=== PATIENT | female | born 1955 | race Two or more races ===

== ENCOUNTER → 2022-02-13 | Outpatient (CLI) | payer MEDICARE ==
[2022-02-13 10:23] LABS: Basophils # (auto) 0.1 10 ^3/uL (0-0.2); Eosinophils # (auto) 0.1 10 ^3/uL (0-0.8); Nucleated Red Blood Cells % 0.1 %; Red Cell Distribution Width 16.6 % (11.8-14.3)
[2022-02-13 10:26] LABS: Basophils % (auto) 1.2 % (0.0-2.0); Eosinophils % (auto) 1.7 % (0.0-7.0); Hematocrit 45.7 % (36.0-46.0); Hemoglobin 15.1 g/dL (12.2-16.2); Lymphocytes # (auto) 2.2 10 ^3/uL (0.4-5.4); Lymphocytes % (auto) 45.9 % (10.0-50.0); Mean Corpuscular Hemoglobin 25.9 pg (28.0-32.0); Mean Corpuscular Volume 78.5 fL (80.0-100.0); Monocytes # (auto) 0.4 10 ^3/uL (0-1.3); Monocytes % (auto) 9.2 % (0.0-12.0); Red Blood Cells 5.82 10^6/uL (4.0-5.20); White Blood Cell 4.8 10^3/uL (4.4-10.8)
[2022-02-13 11:22] LABS: Potassium 4.2 mmol/L (3.5-5.1)
[2022-02-13 11:32] LABS: Albumin 3.2 g/dL (3.4-5.0); BUN/Creatinine Ratio 17.2; Bilirubin, Total 0.5 mg/dL (0.2-1.0); Calcium 9.4 mg/dL (8.5-10.1); Total Protein 7.6 g/dL (6.4-8.2)
== END | disposition home or self-care (01) ==
LOC: LAB 09:25
PROVIDERS: ATTEND Student in an Organized Health Care Education/Training Program
DX: E78.5 Hyperlipidemia, unspecified (principal); I10 Essential (primary) hypertension; R73.09 Other abnormal glucose
CPT/HCPCS: 36415; 80053; 80061; 83036; 85025

== ENCOUNTER → 2023-01-15 | Outpatient (CLI) | payer MEDICARE ==
[2023-01-15 09:05] LABS: Eosinophils # (auto) 0.1 10 ^3/uL (0-0.8); Nucleated Red Blood Cells % 0.1 %
[2023-01-15 09:06] LABS: Basophils # (auto) 0.1 10 ^3/uL (0-0.2); Basophils % (auto) 0.9 % (0.0-2.0); Eosinophils % (auto) 1.2 % (0.0-7.0); Hematocrit 45.5 % (36.0-46.0); Hemoglobin 14.9 g/dL (12.2-16.2); Lymphocytes % (auto) 35.4 % (10.0-50.0); Mean Corpuscular Hemoglobin 25.8 pg (28.0-32.0); Mean Corpuscular Hgb Conc. 32.8 g/dL (32.0-36.0); Mean Corpuscular Volume 78.8 fL (80.0-100.0); Monocytes # (auto) 0.5 10 ^3/uL (0-1.3); Monocytes % (auto) 9.1 % (0.0-12.0); Neutrophils % (auto) 53.4 % (37.0-80.0); Red Blood Cells 5.78 10^6/uL (4.0-5.20); Red Cell Distribution Width 16.9 % (11.8-14.3); White Blood Cell 5.7 10^3/uL (4.4-10.8)
[2023-01-15 10:04] LABS: Albumin 3.1 g/dL (3.4-5.0); Calcium 9.5 mg/dL (8.5-10.1); Potassium 3.6 mmol/L (3.5-5.1)
[2023-01-15 10:10] LABS: BUN/Creatinine Ratio 16.2; Bilirubin, Total 0.7 mg/dL (0.2-1.0); Total Protein 7.7 g/dL (6.4-8.2)
== END | disposition home or self-care (01) ==
LOC: LAB 08:48
PROVIDERS: ATTEND Student in an Organized Health Care Education/Training Program
DX: Z12.11 Encounter for screening for malignant neoplasm of colon (principal); E78.2 Mixed hyperlipidemia; R73.03 Prediabetes; I10 Essential (primary) hypertension; Z68.37 Body mass index [BMI] 37.0-37.9, adult; Z85.118 Personal history of other malignant neoplasm of bronchus and lung
CPT/HCPCS: 36415; 80053; 80061; 82274; 83036; 85025

== ENCOUNTER → 2023-07-08 | Outpatient (CLI) | payer OTHER | END | disposition home or self-care (01) | LOC: XYW 10:39 | PROVIDERS: ATTEND Student in an Organized Health Care Education/Training Program | DX: I08.2 Rheumatic disorders of both aortic and tricuspid valves (principal); R01.1 Cardiac murmur, unspecified | CPT/HCPCS: 93306 ==

== ENCOUNTER 2023-08-27 06:06 | Inpatient (IN) | payer MEDICARE, OTHER ==
[2023-08-23 11:20] LABS: Basophils # (auto) 0 10 ^3/uL (0-0.2); Eosinophils # (auto) 0.1 10 ^3/uL (0-0.8); Lymphocytes # (auto) 1.7 10 ^3/uL (0.4-5.4); Monocytes # (auto) 0.5 10 ^3/uL (0-1.3); Monocytes % (auto) 10.6 % (0.0-12.0); Neutrophils # (auto) 2.3 10 ^3/uL (1.6-8.6); Nucleated Red Blood Cells % 0.1 %; White Blood Cell 4.6 10^3/uL (4.4-10.8)
[2023-08-23 11:23] LABS: Basophils % (auto) 0.7 % (0.0-2.0); Eosinophils % (auto) 1.1 % (0.0-7.0); Hematocrit 47.8 % (36.0-46.0); Hemoglobin 15.8 g/dL (12.2-16.2); Lymphocytes % (auto) 37.5 % (10.0-50.0); Mean Corpuscular Hgb Conc. 33.1 g/dL (32.0-36.0); Mean Corpuscular Volume 78.6 fL (80.0-100.0); Neutrophils % (auto) 50.1 % (37.0-80.0); Red Blood Cells 6.08 10^6/uL (4.0-5.20); Red Cell Distribution Width 16.6 % (11.8-14.3)
[2023-08-23 11:40] LABS: Partial Thromboplastin Time 34.9 SEC (24.5-34.5); Prothrombin Time 10.5 sec (9.3-11.8)
[2023-08-23 11:55] LABS: Alanine Aminotransferase 24 U/L (7-40); Albumin 4.5 g/dL (3.2-4.8); Alkaline Phosphatase 83 U/L (46-116); Aspartate Aminotransferase 17 U/L (13-40); BUN/Creatinine Ratio 13.4 (10.0-20.0); Blood Urea Nitrogen 11 mg/dL (9-23); Calcium 9.9 mg/dL (8.5-10.1); Carbon Dioxide 28 mmol/L (20-30); Glucose 109 mg/dL (74-106)
[2023-08-23 11:56] LABS: Bilirubin, Total 0.8 mg/dL (0.2-1.0)
[2023-08-23 12:25] LABS: Anion Gap 7 (5-15); Chloride 103 mmol/L (98-107); Potassium 3.8 mmol/L (3.5-5.1); Sodium 138 mmol/L (136-145)
[2023-08-23 12:29] LABS: Urine Bacteria FEW /hpf (None Seen); Urine Blood Negative /uL (Negative); Urine Clarity HAZY (Clear); Urine Color Yellow (Yellow); Urine Hyaline Cast FEW /lpf (0 - 2); Urine Mucus FEW (None Seen); Urine Protein, UAD Negative (Negative); Urine Specific Gravity 1.013 (1.001-1.035); Urine Urobilinogen Normal (Negative); Urine WBC 9 /hpf (0 - 5)
[2023-08-27] VITALS (15 sets, daily range): BP systolic 100–141; BP diastolic 34–71; PULSE 55–71; RESP 11–18; TEMP 98–98.7; O2SAT 87–97
[~2023-08-27] VITALS: Ht 167.6 cm; Wt 124.0 kg
[~2023-08-27 06:06] MED LIST: AMLO1TAB23 PO; ATO40T PO; LISI-285 PO
[2023-08-27] MEDS ORDERED: ceFAZolin 1GM/50ML 100 ML IV ONE (06:33)
[2023-08-27] MEDS ORDERED: BUPIVACAINE 0.25% INJ 50ML VIAL ONE (06:47)
[2023-08-27] MEDS ORDERED: EPINEPHrine HCL 1 MG/1 ML AMP ONE (06:47)
[2023-08-27] MEDS ORDERED: TRANEXAMIC ACID 20 ML ONE (06:47)
[2023-08-27] MEDS ORDERED: KETOROLAC TROMETH 30 MG/ML 1ML VIAL ONE ×2 (06:49→07:23)
[2023-08-27] MEDS ORDERED: MORPHINE SULF PF 5 MG/10 ML VIAL ONE (06:49)
[2023-08-27] MEDS ORDERED: BUPIVACAINE 0.5% P/F INJ 10 ML VIAL ONE (06:53)
[2023-08-27] MEDS ORDERED: VANCOMYCIN HCL 1000 MG VL ONE (06:56)
[2023-08-27] MEDS ORDERED: fentaNYL CITRATE 100 MCG/2 ML VL ONE (07:22)
[2023-08-27] MEDS ORDERED: GLYCOPYRROLATE 0.2 MG/ML 1ML VIAL ONE (07:23)
[2023-08-27] MEDS ORDERED: MIDAZOLAM HCL 2MG/2ML 2ml VIAL (1mg/ml) ONE ×2 (07:23→08:35)
[2023-08-27] MEDS ORDERED: ePHEDrine SULFATE 50 MG/ML AMP ONE (07:23)
[2023-08-27] MEDS ORDERED: PHENYLEPHRINE HCL 10 MG/ML VL ONE (07:23)
[2023-08-27] MEDS ORDERED: ONDANSETRON HCL 4 MG/2 ML VIAL ONE (07:23)
[2023-08-27] MEDS ORDERED: PROPOFOL 10 MG/ML 20 ML IV ONE (07:23)
[2023-08-27] MEDS ORDERED: ROCURONIUM 10MG/ML 10ML VIAL IV ONE (08:34)
[2023-08-27] MEDS ORDERED: HYDROmorphone HCL 2 MG/ML VL/or syr ONE (08:52)
[2023-08-27] MEDS ORDERED: SUGAMMADEX 200mg/2ml Vial (100MG/ML) IV ONE (09:46)
[2023-08-27] MEDS ORDERED: DexAMETHasone SOD PHOS 10MG/1ML VIAL INJ IV PRN (10:45)
[2023-08-27] MEDS ORDERED: ONDANSETRON HCL 4 MG/2 ML VIAL IV PRN (10:45)
[2023-08-27] MEDS ORDERED: diphenhdrAMINE HCL 50 MG/1 ML VL IV PRN (10:45)
[2023-08-27] MEDS ORDERED: KETOROLAC TROMETH 30 MG/ML 1ML VIAL IV PRN (10:45)
[2023-08-27] MEDS ORDERED: NALOXONE HCL 0.4 MG/ML VIAL IV PRN ×2 (10:45)
[2023-08-27] MEDS ORDERED: oxyCODONE HCL 5MG TAB PO PRN (11:30)
[2023-08-27] MEDS: ONDANSETRON HCL 4 MG/2 ML VIAL IV PRN ×2 (11:32→21:00)
[2023-08-27] MEDS: KETOROLAC TROMETH 30 MG/ML 1ML VIAL IV SCH ×2 (12:00→18:00)
[2023-08-27] MEDS: ACETAMINOPHEN 325 MG TAB PO SCH ×2 (12:00→18:00)
[2023-08-27] MEDS ORDERED: ceFAZolin 2 GM/D5W100ml 100 ML IV SCH (14:00)
[2023-08-27] MEDS ORDERED: DexAMETHasone SOD PHOS 10MG/1ML VIAL INJ IV ONE (15:42)
[2023-08-27] MEDS ORDERED: KETAMINE 50mg/ML 10ml Vial (500mg/10ml) IV ONE (15:42)
[2023-08-27] MEDS: SODIUM CHLORIDE 0.9% 1,000 ML IV SCH (16:00)
[2023-08-27] MEDS: ceFAZolin 2 GM/D5W100ml 100 ML IV SCH (16:46)
[2023-08-28] VITALS (18 sets, daily range): BP systolic 111–151; BP diastolic 38–75; PULSE 67–90; RESP 16–18; TEMP 97.4–98.7; O2SAT 90–98
[2023-08-28] MEDS: ceFAZolin 2 GM/D5W100ml 100 ML IV SCH (00:44)
[2023-08-28] MEDS: ATORVASTATIN 20 MG TAB PO SCH ×2 (00:48→21:50)
[2023-08-28] MEDS: PREGABALIN 25 MG CAP PO SCH ×3 (00:48→21:50)
[2023-08-28] MEDS: SODIUM CHLORIDE 0.9% 1,000 ML IV SCH ×3 (03:45→19:30)
[2023-08-28] MEDS: KETOROLAC TROMETH 30 MG/ML 1ML VIAL IV SCH ×4 (06:00→16:40)
[2023-08-28] MEDS: ACETAMINOPHEN 325 MG TAB PO SCH ×4 (06:00→16:40)
[2023-08-28 06:13] LABS: Anion Gap 5 (5-15); Carbon Dioxide 30 mmol/L (20-30); Chloride 102 mmol/L (98-107); Potassium 4.2 mmol/L (3.5-5.1); Sodium 137 mmol/L (136-145)
[2023-08-28 06:14] LABS: Calcium 9.3 mg/dL (8.7-10.4)
[2023-08-28 06:19] LABS: BUN/Creatinine Ratio 13.1 (10.0-20.0); Blood Urea Nitrogen 13 mg/dL (9-23); Glucose 150 mg/dL (74-106)
[2023-08-28 06:29] LABS: Basophils # (auto) 0 10 ^3/uL (0-0.2); Eosinophils # (auto) 0 10 ^3/uL (0-0.8); Hemoglobin 12.7 g/dL (12.2-16.2); Lymphocytes # (auto) 0.9 10 ^3/uL (0.4-5.4); Lymphocytes % (auto) 6.2 % (10.0-50.0); Mean Corpuscular Hemoglobin 25.9 pg (28.0-32.0); Mean Corpuscular Hgb Conc. 32.7 g/dL (32.0-36.0); Mean Corpuscular Volume 79.2 fL (80.0-100.0); Monocytes # (auto) 1.1 10 ^3/uL (0-1.3); Monocytes % (auto) 6.9 % (0.0-12.0); Neutrophils # (auto) 13.3 10 ^3/uL (1.6-8.6); Neutrophils % (auto) 86.9 % (37.0-80.0); Red Blood Cells 4.93 10^6/uL (4.0-5.20); Red Cell Distribution Width 16.8 % (11.8-14.3); White Blood Cell 15.3 10^3/uL (4.4-10.8)
[2023-08-28] MEDS: APIXABAN 2.5 MG TAB PO SCH ×2 (09:44→21:50)
[2023-08-28] MEDS: oxyCODONE HCL 5MG TAB PO PRN ×3 (09:44→21:50)
[2023-08-28] MEDS: amLODIPine BESYLATE 5 MG TAB PO SCH (09:44)
[2023-08-28] MEDS ORDERED: PATIENTS OWN MEDICATION (Amlodipine Besylate 10 MG) PO SCH (10:00)
[2023-08-28] MEDS ORDERED: PATIENTS OWN MEDICATION (Atorvastatin Calcium (Lipitor) 40 MG) PO SCH (10:00)
[2023-08-28] MEDS ORDERED: HYDROCHLOROTHIAZI PO SCH (10:00)
[2023-08-28] MEDS ORDERED: LISINOPRIL PO SCH (10:00)
[2023-08-29] MEDS: SODIUM CHLORIDE 0.9% 1,000 ML IV SCH ×2 (03:30→11:30)
[2023-08-29 04:55] VITALS: BP 160/69; PULSE 83; RESP 20; TEMP 98; O2SAT 96
[2023-08-29] MEDS: KETOROLAC TROMETH 30 MG/ML 1ML VIAL IV SCH ×3 (06:00→15:33)
[2023-08-29] MEDS: ACETAMINOPHEN 325 MG TAB PO SCH ×3 (06:00→12:00)
[2023-08-29 08:00] VITALS: PULSE 70; PULSE 73; RESP 18; O2SAT 94
[2023-08-29] MEDS: oxyCODONE HCL 5MG TAB PO PRN (08:23)
[2023-08-29] MEDS: APIXABAN 2.5 MG TAB PO SCH (08:23)
[2023-08-29] MEDS: PREGABALIN 25 MG CAP PO SCH (08:23)
[2023-08-29] MEDS: amLODIPine BESYLATE 5 MG TAB PO SCH (08:24)
[2023-08-29 09:00] VITALS: BP 151/63; PULSE 86; RESP 18; TEMP 98.3; O2SAT 98
[2023-08-29 13:00] VITALS: BP 140/51; PULSE 87; RESP 19; TEMP 97.9; O2SAT 91
== END 2023-08-29 16:57 | disposition home health service (06) | DRG 470 ==
LOC: SUR 06:06 → TELE 10:32 → TELE-CENTR 13:20
PROVIDERS: ADMIT Orthopaedic Surgery; ATTEND Orthopaedic Surgery
PROC: 0SRB06Z Replacement of Left Hip Joint with Oxidized Zirconium on Polyethylene Synthetic Substitute, Open Approach (ICD-10-PCS; principal; 2023-08-27 07:39)
DX: M16.12 Unilateral primary osteoarthritis, left hip (principal)
CPT/HCPCS: 36415; 72170; 73502; 80048; 80053; 81001; 85025; 85610; 85730; 86850; 86900; 86901; 97110; 97116; 97163; 97530; C1776; G0378; J0171; J0690; J1100; J1885; J2250; J2405; J2704; J3490

== ENCOUNTER → 2024-04-06 | Outpatient (CLI) | payer MEDICARE ==
[~2024-04-06] MED LIST changes: -ATO40T PO; +ATOR-507 PO
== END | disposition home or self-care (01) ==
LOC: LAB 09:21
PROVIDERS: ATTEND Student in an Organized Health Care Education/Training Program
DX: Z01.812 Encounter for preprocedural laboratory examination (principal); Z85.118 Personal history of other malignant neoplasm of bronchus and lung
CPT/HCPCS: 36415; 82565; 84520

== ENCOUNTER → 2024-04-28 | Outpatient (CLI) | payer OTHER ==
[2024-04-28 12:00] LABS: Basophils # (auto) 0 10 ^3/uL (0-0.2); Basophils % (auto) 0.7 % (0.0-2.0); Eosinophils # (auto) 0.2 10 ^3/uL (0-0.8); Eosinophils % (auto) 3.1 % (0.0-7.0); Hematocrit 46.3 % (36.0-46.0); Hemoglobin 14.9 g/dL (12.2-16.2); Lymphocytes # (auto) 1.9 10 ^3/uL (0.4-5.4); Lymphocytes % (auto) 36.8 % (10.0-50.0); Mean Corpuscular Hemoglobin 25.1 pg (28.0-32.0); Mean Corpuscular Hgb Conc. 32.1 g/dL (32.0-36.0); Mean Corpuscular Volume 78.2 fL (80.0-100.0); Monocytes # (auto) 0.6 10 ^3/uL (0-1.3); Monocytes % (auto) 10.9 % (0.0-12.0); Neutrophils # (auto) 2.5 10 ^3/uL (1.6-8.6); Neutrophils % (auto) 48.5 % (37.0-80.0); Nucleated Red Blood Cells % 0.1 %; Red Blood Cells 5.92 10^6/uL (4.0-5.20); Red Cell Distribution Width 16.8 % (11.8-14.3); White Blood Cell 5.2 10^3/uL (4.4-10.8)
[2024-04-28 12:23] LABS: Alanine Aminotransferase 19 U/L (7-40); Albumin 4.2 g/dL (3.2-4.8); Alkaline Phosphatase 96 U/L (46-116); Anion Gap 5 (5-15); Aspartate Aminotransferase 16 U/L (13-40); BUN/Creatinine Ratio 15.2 (10.0-20.0); Blood Urea Nitrogen 12 mg/dL (9-23); Calcium 9.8 mg/dL (8.5-10.1); Carbon Dioxide 30 mmol/L (20-30); Chloride 105 mmol/L (98-107); Glucose 105 mg/dL (74-106); LDL Cholesterol 77 mg/dL (< 100); Potassium 3.5 mmol/L (3.5-5.1); Sodium 140 mmol/L (136-145); Triglycerides 65 mg/dL (< 150)
[2024-04-28 12:24] LABS: Bilirubin, Total 0.6 mg/dL (0.2-1.0); Cholesterol 126 mg/dL (< 200); HDL Cholesterol 33 mg/dL (40-59); Total Protein 7.3 g/dL (5.7-8.2)
== END | disposition home or self-care (01) ==
LOC: LAB 11:39
PROVIDERS: ATTEND Student in an Organized Health Care Education/Training Program
DX: Z12.11 Encounter for screening for malignant neoplasm of colon (principal); I10 Essential (primary) hypertension; E78.2 Mixed hyperlipidemia
CPT/HCPCS: 36415; 80053; 80061; 82274; 85025

== ENCOUNTER → 2024-05-18 | Outpatient (CLI) | payer OTHER ==
[2024-05-18 09:43] LABS: Basophils # (auto) 0 10 ^3/uL (0-0.2); Eosinophils # (auto) 0.1 10 ^3/uL (0-0.8); Hemoglobin 15.2 g/dL (12.2-16.2); Monocytes # (auto) 0.6 10 ^3/uL (0-1.3); Nucleated Red Blood Cells % 0.1 %; Red Blood Cells 5.95 10^6/uL (4.0-5.20)
[2024-05-18 09:45] LABS: Basophils % (auto) 0.7 % (0.0-2.0); Hematocrit 46.7 % (36.0-46.0); Lymphocytes % (auto) 32.9 % (10.0-50.0); Mean Corpuscular Hemoglobin 25.6 pg (28.0-32.0); Mean Corpuscular Hgb Conc. 32.6 g/dL (32.0-36.0); Mean Corpuscular Volume 78.5 fL (80.0-100.0); Monocytes % (auto) 9.9 % (0.0-12.0); Neutrophils # (auto) 3.3 10 ^3/uL (1.6-8.6); Neutrophils % (auto) 55.5 % (37.0-80.0); Red Cell Distribution Width 17.5 % (11.8-14.3)
[2024-05-18 10:00] LABS: INR 0.99 (0.9-1.15); Partial Thromboplastin Time 31.6 SEC (24.5-34.5); Prothrombin Time 10.5 sec (9.3-11.8)
== END | disposition home or self-care (01) ==
LOC: LAB 09:21
PROVIDERS: ATTEND Student in an Organized Health Care Education/Training Program
DX: Z01.812 Encounter for preprocedural laboratory examination (principal); I50.9 Heart failure, unspecified; C34.90 Malignant neoplasm of unspecified part of unspecified bronchus or lung; Z85.118 Personal history of other malignant neoplasm of bronchus and lung; Z98.890 Other specified postprocedural states
CPT/HCPCS: 36415; 85025; 85610; 85730

== ENCOUNTER → 2024-06-29 | Outpatient (CLI) | payer OTHER ==
[2024-06-29 12:27] LABS: Base Excess 3.6 mmol/L (-2.0-2.0)
== END | disposition home or self-care (01) ==
LOC: RT 11:35
PROVIDERS: ATTEND Student in an Organized Health Care Education/Training Program
DX: R79.81 Abnormal blood-gas level (principal)
CPT/HCPCS: 36600; 82805

== ENCOUNTER → 2024-07-06 | Outpatient (CLI) | payer OTHER | END | disposition home or self-care (01) | LOC: RT 11:06 | PROVIDERS: ATTEND Student in an Organized Health Care Education/Training Program | DX: C34.90 Malignant neoplasm of unspecified part of unspecified bronchus or lung (principal); Z87.891 Personal history of nicotine dependence | CPT/HCPCS: 94060; 94727; 94729 ==

== ENCOUNTER → 2024-07-22 | Outpatient (CLI) | payer OTHER ==
[~2024-07-22] VITALS: Ht 165.1 cm; Wt 99.3 kg
[2024-07-22] MEDS: ADENOSINE 83 MG in GIVE UN-DILUTED 0 ML IV ONE (12:03)
== END | disposition home or self-care (01) ==
LOC: XY 08:32
PROVIDERS: ATTEND Student in an Organized Health Care Education/Training Program
DX: I49.1 Atrial premature depolarization (principal); I11.9 Hypertensive heart disease without heart failure; E78.5 Hyperlipidemia, unspecified
CPT/HCPCS: 78452; 93017; 93306; A9500; J0153

== ENCOUNTER 2024-07-29 06:15 | Inpatient (IN) | payer OTHER ==
[2024-07-28 12:54] LABS: Basophils # (auto) 0 10 ^3/uL (0-0.2); Basophils % (auto) 0.7 % (0.0-2.0); Eosinophils # (auto) 0.1 10 ^3/uL (0-0.8); Eosinophils % (auto) 0.8 % (0.0-7.0); Hematocrit 46.8 % (36.0-46.0); Hemoglobin 15.7 g/dL (12.2-16.2); Lymphocytes # (auto) 2.1 10 ^3/uL (0.4-5.4); Mean Corpuscular Hemoglobin 26.3 pg (28.0-32.0); Mean Corpuscular Hgb Conc. 33.4 g/dL (32.0-36.0); Mean Corpuscular Volume 78.7 fL (80.0-100.0); Monocytes # (auto) 0.8 10 ^3/uL (0-1.3); Neutrophils # (auto) 3.9 10 ^3/uL (1.6-8.6); Neutrophils % (auto) 56.5 % (37.0-80.0); Platelet Count (auto) 313 10^3/uL (140-450); Red Blood Cells 5.95 10^6/uL (4.0-5.20); Red Cell Distribution Width 17.5 % (11.8-14.3)
[2024-07-28 13:07] LABS: INR 1.02 (0.9-1.15); Partial Thromboplastin Time 31.8 SEC (24.5-34.5); Prothrombin Time 10.8 sec (9.3-11.8)
[2024-07-28 13:47] LABS: Alanine Aminotransferase 21 U/L (7-40); Alkaline Phosphatase 97 U/L (46-116); Anion Gap 6 (5-15); Aspartate Aminotransferase 16 U/L (13-40); BUN/Creatinine Ratio 11.5 (10.0-20.0); Blood Urea Nitrogen 9 mg/dL (9-23); Calcium 10.4 mg/dL (8.7-10.4); Carbon Dioxide 27 mmol/L (20-30); Chloride 105 mmol/L (98-107); Glucose 108 mg/dL (74-106); Potassium 3.6 mmol/L (3.5-5.1); Sodium 138 mmol/L (136-145)
[2024-07-28 13:48] LABS: Albumin 4.4 g/dL (3.2-4.8); Bilirubin, Total 0.8 mg/dL (0.2-1.0); Total Protein 7.7 g/dL (5.7-8.2)
[~2024-07-29] VITALS: Ht 167.6 cm; Wt 104.6 kg
[2024-07-29] VITALS (36 sets, daily range): BP systolic 105–151; BP diastolic 40–66; PULSE 80–98; RESP 8–22; TEMP 97.9–98.2; O2SAT 92–99
[2024-07-29] MEDS ORDERED: KETAMINE 50mg/ML 1ml syringe ONE (06:37)
[2024-07-29] MEDS ORDERED: fentaNYL CITRATE 100 MCG/2 ML VL ONE (06:37)
[2024-07-29] MEDS ORDERED: LIDOCAINE 1% INJ PF 5ML AMP ONE (06:38)
[2024-07-29] MEDS ORDERED: PROPOFOL 10 MG/ML 20 ML IV ONE (06:38)
[2024-07-29] MEDS ORDERED: ONDANSETRON HCL 4 MG/2 ML VIAL ONE (06:38)
[2024-07-29] MEDS ORDERED: ROCURONIUM 10MG/ML 10ML VIAL IV ONE (06:38)
[2024-07-29] MEDS ORDERED: LIDOCAINE 2% TOPICAL JELLY 5 ML URJT TOP ONE (06:38)
[2024-07-29] MEDS ORDERED: DexAMETHasone SOD PHOS 10MG/1ML VIAL INJ ONE ×2 (06:38→06:44)
[2024-07-29] MEDS ORDERED: GLYCOPYRROLATE 0.2 MG/ML 1ML VIAL ONE (06:38)
[2024-07-29] MEDS ORDERED: SODIUM CHLORIDE LOCK 20 ML ONE (06:44)
[2024-07-29] MEDS ORDERED: EPINEPHrine HCL 1 MG/1 ML AMP ONE (06:44)
[2024-07-29] MEDS: LIDOCAINE 2%HCL (LOCAL ANESTH.) INJ 10ml MDV ONE (06:49)
[2024-07-29] MEDS: BUPIVACAINE 0.25% INJ 50ML VIAL ONE (06:53)
[2024-07-29] MEDS ORDERED: MIDAZOLAM HCL 2MG/2ML 2ml VIAL (1mg/ml) ONE (07:05)
[2024-07-29 07:14] LABS: Urine Bacteria FEW /hpf (None Seen); Urine Blood Negative /uL (Negative); Urine Clarity Turbid (Clear); Urine Color Light-Yellow (Yellow); Urine Mucus FEW (None Seen); Urine Protein, UAD Negative (Negative); Urine Specific Gravity 1.011 (1.001-1.035); Urine Urobilinogen Normal (Negative); Urine WBC 3 /hpf (0 - 5); Urine pH 6.5 (5.0-9.0)
[2024-07-29] MEDS: CELECOXIB 100 MG CAP PO ONE (07:15)
[2024-07-29] MEDS: GABAPENTIN 400 MG CAP PO ONE (07:15)
[2024-07-29] MEDS: ACETAMINOPHEN IV 1000 MG/100ML (10MG/ML) IV ONE (07:15)
[2024-07-29] MEDS: ceFAZolin 2 GM/D5W50ml 50 ML IV ONE (07:22)
[2024-07-29] MEDS ORDERED: ePHEDrine SULFATE 50 MG/ML AMP ONE (07:52)
[2024-07-29] MEDS: MINERAL OIL TOPICAL 10ml TOP ONE (08:00)
[2024-07-29] MEDS: ceFAZolin 1GM VL ONE ×2 (09:58→11:53)
[2024-07-29] MEDS ORDERED: SODIUM CHLORIDE LOCK 10 ML ONE ×3 (10:14→11:22)
[2024-07-29] MEDS ORDERED: PHENYLEPHRINE HCL 10 MG/ML VL ONE (10:52)
[2024-07-29] MEDS ORDERED: SUGAMMADEX 200mg/2ml Vial (100MG/ML) IV ONE (11:19)
[2024-07-29] MEDS ORDERED: ceFAZolin 1GM VL ONE (11:22)
[2024-07-29] MEDS: ONDANSETRON HCL 4 MG/2 ML VIAL IV PRN ×2 (13:49→18:09)
[2024-07-29] MEDS: ONDANSETRON HCL 4 MG/2 ML VIAL ONE (13:50)
[2024-07-29] MEDS ORDERED: MAGNESIUM SULFATE 1GM/100ML 100 ML IV PRN (14:00)
[2024-07-29] MEDS ORDERED: ePHEDrine SULFATE 50 MG/ML AMP IV PRN (14:00)
[2024-07-29] MEDS ORDERED: MORPHINE SULFATE INJ 2 MG/ml SYRG IV PRN (14:00)
[2024-07-29] MEDS ORDERED: CALCIUM GLUC 1,000mg/50ml-NS 50 ML IV PRN (14:00)
[2024-07-29] MEDS: SODIUM CHLORIDE 0.9% 500 ML IV SCH (14:00)
[2024-07-29] MEDS ORDERED: fentaNYL CITRATE 100 MCG/2 ML VL IV PRN (14:00)
[2024-07-29] MEDS ORDERED: ALBUMIN 25% 250 ML IV PRN (14:00)
[2024-07-29] MEDS ORDERED: SODIUM BICARB 8.4% 50Meq/50ml SYR INJ IV PRN (14:00)
[2024-07-29] MEDS ORDERED: NALOXONE HCL 0.4 MG/ML VIAL IV PRN (14:00)
[2024-07-29] MEDS ORDERED: FLUMAZENIL 0.1 MG/ML INJ 10ML MDV IV PRN (14:00)
[2024-07-29] MEDS ORDERED: NITROGLYCERIN 0.4 MG SL TAB SL PRN (14:00)
[2024-07-29] MEDS ORDERED: hydrALAZINE HCL 20 MG/ML VL IV PRN (14:00)
[2024-07-29] MEDS ORDERED: POTASSIUM CHL 20MEQ/100ML 100 ML IV PRN (14:00)
[2024-07-29] MEDS: HYDROmorphone HCL 2 MG/ML VL/or syr ONE (14:01)
[2024-07-29] MEDS: HYDROmorphone HCL 2 MG/ML VL/or syr IV PRN (14:01)
[2024-07-29] MEDS: oxyCODONE HCL 5MG TAB PO PRN (14:33)
[2024-07-29 14:37] LABS: Base Excess -3.7 mmol/L (-2.0-3.0)
[2024-07-29] MEDS: IPRATROPIUM BROM 0.5 MG/2.5ML INH SOL NEB SCH (15:13)
[2024-07-29] MEDS: ALBUTEROL SULF 2.5 MG/0.5ML(0.5%) NEB SOLN NEB SCH (15:13)
[2024-07-29] MEDS: D5W/SOD CHL 0.45%/KCL 20MEQ 1,000 ML IV SCH (15:37)
[2024-07-29 16:16] LABS: Basophils # (auto) 0 10 ^3/uL (0-0.2); Basophils % (auto) 0.1 % (0.0-2.0); Eosinophils # (auto) 0 10 ^3/uL (0-0.8); Lymphocytes # (auto) 0.4 10 ^3/uL (0.4-5.4); Lymphocytes % (auto) 2.5 % (10.0-50.0); Monocytes # (auto) 0.3 10 ^3/uL (0-1.3)
[2024-07-29 16:18] LABS: Hemoglobin 14.5 g/dL (12.2-16.2); Mean Corpuscular Hgb Conc. 32.9 g/dL (32.0-36.0); Monocytes % (auto) 1.8 % (0.0-12.0); Neutrophils # (auto) 15.6 10 ^3/uL (1.6-8.6); Neutrophils % (auto) 95.6 % (37.0-80.0); Platelet Count (auto) 282 10^3/uL (140-450); Red Blood Cells 5.56 10^6/uL (4.0-5.20); White Blood Cell 16.3 10^3/uL (4.4-10.8)
[2024-07-29 16:38] LABS: Alanine Aminotransferase 24 U/L (7-40); Albumin 3.8 g/dL (3.2-4.8); Alkaline Phosphatase 82 U/L (46-116); Anion Gap 8 (5-15); Aspartate Aminotransferase 23 U/L (13-40); BUN/Creatinine Ratio 14.4 (10.0-20.0); Blood Urea Nitrogen 13 mg/dL (9-23); Calcium 9.3 mg/dL (8.7-10.4); Carbon Dioxide 27 mmol/L (20-30); Chloride 103 mmol/L (98-107); Glucose 215 mg/dL (74-106); Magnesium 1.6 mg/dL (1.6-2.6); Potassium 3.4 mmol/L (3.5-5.1); Sodium 138 mmol/L (136-145)
[2024-07-29 16:39] LABS: Bilirubin, Total 0.7 mg/dL (0.2-1.0); Phosphorus 4.3 mg/dL (2.4-5.1); Total Protein 6.8 g/dL (5.7-8.2)
[2024-07-29] MEDS: ACETAMINOPHEN IV 1000 MG/100ML (10MG/ML) IV SCH (18:00)
[2024-07-29] MEDS: ceFAZolin 2 GM in D5W 5% 100 ML IV SCH (18:05)
[2024-07-29] MEDS: HYDROcodone-ACET 5/325MG TAB PO PRN (18:10)
[2024-07-29] MEDS: POTASSIUM CHL 20 Meq TABLET PO ONE (18:20)
[2024-07-29] MEDS: POTASSIUM CHL 20MEQ/100ML 100 ML IV ONE (18:20)
[2024-07-29] MEDS: MAGNESIUM SULFATE 1GM/100ML 100 ML IV SCH (19:30)
[2024-07-29] MEDS: MORPHINE SULFATE 4 MG/ML SYR/VIAL IV PRN (20:13)
[2024-07-29] MEDS: CHLORHEXIDINE 0.12% ORAL rinse 473ML MT SCH (22:00)
[2024-07-30] VITALS (74 sets, daily range): BP systolic 98–181; BP diastolic 42–91; PULSE 62–92; RESP 8–26; TEMP 97.7–98.1; O2SAT 89–100
[2024-07-30 01:03] LABS: Magnesium 2.3 mg/dL (1.6-2.6)
[2024-07-30 03:54] LABS: Basophils # (auto) 0 10 ^3/uL (0-0.2); Eosinophils # (auto) 0 10 ^3/uL (0-0.8); Hemoglobin 14.4 g/dL (12.2-16.2)
[2024-07-30 03:58] LABS: Basophils % (auto) 0.3 % (0.0-2.0); Hematocrit 43.2 % (36.0-46.0); Lymphocytes # (auto) 0.7 10 ^3/uL (0.4-5.4); Lymphocytes % (auto) 5.4 % (10.0-50.0); Mean Corpuscular Hemoglobin 26.3 pg (28.0-32.0); Mean Corpuscular Hgb Conc. 33.2 g/dL (32.0-36.0); Mean Corpuscular Volume 79.2 fL (80.0-100.0); Monocytes # (auto) 0.8 10 ^3/uL (0-1.3); Monocytes % (auto) 6.1 % (0.0-12.0); Neutrophils # (auto) 11.7 10 ^3/uL (1.6-8.6); Neutrophils % (auto) 88.2 % (37.0-80.0); Platelet Count (auto) 285 10^3/uL (140-450); Red Blood Cells 5.45 10^6/uL (4.0-5.20); Red Cell Distribution Width 17.5 % (11.8-14.3); White Blood Cell 13.3 10^3/uL (4.4-10.8)
[2024-07-30 04:12] LABS: Alanine Aminotransferase 21 U/L (7-40); Albumin 3.8 g/dL (3.2-4.8); Alkaline Phosphatase 75 U/L (46-116); Anion Gap 6 (5-15); Aspartate Aminotransferase 37 U/L (13-40); BUN/Creatinine Ratio 13.7 (10.0-20.0); Blood Urea Nitrogen 10 mg/dL (9-23); Carbon Dioxide 28 mmol/L (20-30); Chloride 103 mmol/L (98-107); Glucose 179 mg/dL (74-106); Magnesium 2.4 mg/dL (1.6-2.6); Potassium 4.4 mmol/L (3.5-5.1); Sodium 137 mmol/L (136-145)
[2024-07-30 04:13] LABS: Phosphorus 2.9 mg/dL (2.4-5.1)
[2024-07-30 04:14] LABS: Bilirubin, Total 0.4 mg/dL (0.2-1.0); Total Protein 6.6 g/dL (5.7-8.2)
[2024-07-30 07:52] LABS: Base Excess 0.7 mmol/L (-2.0-3.0)
[2024-07-30] MEDS: amLODIPine BESYLATE 5 MG TAB PO SCH (09:41)
[2024-07-30] MEDS: ATORVASTATIN 20 MG TAB PO SCH (09:41)
[2024-07-30] MEDS: HYDROCHLOROTHIAZI PO SCH (10:00)
[2024-07-30] MEDS: LISINOPRIL PO SCH (10:00)
[2024-07-30] MEDS: Ensure HIGH Protein Vanilla 8oz Bottle PO SCH (18:00)
[2024-07-31] VITALS (57 sets, daily range): BP systolic 96–199; BP diastolic 47–106; PULSE 67–106; RESP 9–27; TEMP 98.1–99.5; O2SAT 81–100
[2024-07-31 04:03] LABS: Basophils # (auto) 0 10 ^3/uL (0-0.2); Basophils % (auto) 0.4 % (0.0-2.0); Eosinophils # (auto) 0 10 ^3/uL (0-0.8); Eosinophils % (auto) 0.1 % (0.0-7.0); Hematocrit 44.5 % (36.0-46.0); Hemoglobin 14.7 g/dL (12.2-16.2); Mean Corpuscular Hemoglobin 26.3 pg (28.0-32.0); Mean Corpuscular Volume 79.6 fL (80.0-100.0); Monocytes # (auto) 0.8 10 ^3/uL (0-1.3); Monocytes % (auto) 6.2 % (0.0-12.0); Neutrophils # (auto) 11.7 10 ^3/uL (1.6-8.6); Neutrophils % (auto) 86.3 % (37.0-80.0); Platelet Count (auto) 277 10^3/uL (140-450); Red Blood Cells 5.59 10^6/uL (4.0-5.20); Red Cell Distribution Width 17.2 % (11.8-14.3); White Blood Cell 13.5 10^3/uL (4.4-10.8)
[2024-07-31 04:10] LABS: Anion Gap 3 (5-15); Calcium 9.4 mg/dL (8.7-10.4); Carbon Dioxide 35 mmol/L (20-30); Chloride 101 mmol/L (98-107); Potassium 4.3 mmol/L (3.5-5.1); Sodium 139 mmol/L (136-145)
[2024-07-31 04:16] LABS: BUN/Creatinine Ratio 15.1 (10.0-20.0); Blood Urea Nitrogen 11 mg/dL (9-23); Glucose 137 mg/dL (74-106); INR 0.97 (0.9-1.15); Partial Thromboplastin Time 28.6 SEC (24.5-34.5); Prothrombin Time 10.3 sec (9.3-11.8)
[2024-07-31 04:17] LABS: Magnesium 2.2 mg/dL (1.6-2.6)
[2024-07-31 04:18] LABS: Phosphorus 2.9 mg/dL (2.4-5.1)
[2024-07-31] MEDS: FUROSEMIDE 20 MG/2 ML VIAL IV SCH (08:13)
[2024-07-31] MEDS: POTASSIUM CHL 10 Meq TABLET PO SCH (08:13)
[2024-07-31] MEDS: DOCUSATE SOD 100 MG CAP PO SCH (10:02)
[2024-07-31] MEDS: METOPROLOL TARTRATE 25 MG TAB PO SCH (10:40)
[2024-07-31] MEDS: IPRATROPIUM BROM 0.5 MG/2.5ML INH SOL NEB SCH (12:43)
[2024-07-31] MEDS: LEVALBUTEROL HCL 1.25 MG/3 ML NEB NEB SCH (12:43)
[2024-07-31] MEDS: BUDESONIDE (INHALATION) 0.5 MG/2 ML NEB NEB SCH (19:42)
[2024-08-01] VITALS (54 sets, daily range): BP systolic 101–162; BP diastolic 47–112; PULSE 62–117; RESP 8–30; TEMP 98–99.2; O2SAT 83–100
[2024-08-01 04:16] LABS: Basophils # (auto) 0 10 ^3/uL (0-0.2); Basophils % (auto) 0.3 % (0.0-2.0); Eosinophils # (auto) 0 10 ^3/uL (0-0.8); Eosinophils % (auto) 0.5 % (0.0-7.0); Hematocrit 44.6 % (36.0-46.0); Hemoglobin 15.1 g/dL (12.2-16.2); Lymphocytes # (auto) 1.6 10 ^3/uL (0.4-5.4); Lymphocytes % (auto) 18.7 % (10.0-50.0); Mean Corpuscular Hgb Conc. 33.9 g/dL (32.0-36.0); Mean Corpuscular Volume 79.6 fL (80.0-100.0); Monocytes # (auto) 0.7 10 ^3/uL (0-1.3); Monocytes % (auto) 8.4 % (0.0-12.0); Neutrophils % (auto) 72.1 % (37.0-80.0); Platelet Count (auto) 279 10^3/uL (140-450); Red Blood Cells 5.61 10^6/uL (4.0-5.20); Red Cell Distribution Width 17.3 % (11.8-14.3); White Blood Cell 8.3 10^3/uL (4.4-10.8)
[2024-08-01 04:20] LABS: Chloride 99 mmol/L (98-107); Sodium 136 mmol/L (136-145)
[2024-08-01 04:21] LABS: Anion Gap 2 (5-15); Calcium 9.9 mg/dL (8.7-10.4); Carbon Dioxide 35 mmol/L (20-30)
[2024-08-01 04:26] LABS: Blood Urea Nitrogen 12 mg/dL (9-23); Glucose 109 mg/dL (74-106)
[2024-08-01 04:27] LABS: Magnesium 2.1 mg/dL (1.6-2.6)
[2024-08-01 04:28] LABS: Phosphorus 2.4 mg/dL (2.4-5.1)
[2024-08-01] MEDS: MORPHINE SULFATE 4 MG/ML SYR/VIAL IV PRN ×3 (07:39→18:51)
[2024-08-01] MEDS: METOPROLOL TARTRATE 1MG/1ML-5ML VIAL IV ONE (08:51)
[2024-08-01] MEDS ORDERED: ACETAMINOPHEN 325 MG TAB PO PRN (09:45)
[2024-08-01] MEDS: BISACODYL 5 MG EC TAB PO ONE (09:45)
[2024-08-01] MEDS: METOPROLOL TARTRATE 25 MG TAB PO SCH (10:00)
[2024-08-01] MEDS: SPIRONOLACTONE 25 MG TAB PO SCH (10:57)
[2024-08-01] MEDS: ACETYLCYSTEINE 20%(200MG/ML) SOL 4ML ONE (11:43)
[2024-08-01] MEDS ORDERED: HYDROcodone-ACET 5/325MG TAB PO PRN ×2 (12:00→14:15)
[2024-08-01] MEDS: guaiFENesin 200 MG/10 ML UD GT SCH (14:08)
[2024-08-01] MEDS: ACETYLCYSTEINE 20%(200MG/ML) SOL 4ML IN SCH (18:49)
[2024-08-01] MEDS: HYDROcodone-ACET 5/325MG TAB PO PRN (22:00)
[2024-08-02] VITALS (51 sets, daily range): BP systolic 102–162; BP diastolic 44–88; PULSE 64–112; RESP 6–24; TEMP 98.1–98.8; O2SAT 85–100
[2024-08-02 08:49] LABS: Alanine Aminotransferase 14 U/L (7-40); Albumin 3.6 g/dL (3.2-4.8); Alkaline Phosphatase 64 U/L (46-116); Anion Gap 4 (5-15); Aspartate Aminotransferase 25 U/L (13-40); BUN/Creatinine Ratio 23.7 (10.0-20.0); Bilirubin, Total 0.9 mg/dL (0.2-1.0); Blood Urea Nitrogen 14 mg/dL (9-23); Calcium 9.7 mg/dL (8.7-10.4); Carbon Dioxide 32 mmol/L (20-30); Chloride 99 mmol/L (98-107); Glucose 106 mg/dL (74-106); Potassium 3.9 mmol/L (3.5-5.1); Sodium 135 mmol/L (136-145); Total Protein 6.3 g/dL (5.7-8.2)
[2024-08-02] MEDS: IOHEXOL 300 MG/ML 100ML BOTTLE IJ ONE (10:26)
[2024-08-02] MEDS: POTASSIUM CHL 20 Meq TABLET PO ONE (11:32)
[2024-08-02] MEDS ORDERED: POLYETHYLENE GLYCOL 17 GM PWDR PO PRN (14:30)
[2024-08-03] VITALS (60 sets, daily range): BP systolic 97–158; BP diastolic 45–111; PULSE 56–165; RESP 7–23; TEMP 98–99.7; O2SAT 90–100
[2024-08-03 04:17] LABS: Alanine Aminotransferase 12 U/L (7-40); Albumin 3.6 g/dL (3.2-4.8); Alkaline Phosphatase 61 U/L (46-116); Anion Gap 3 (5-15); Aspartate Aminotransferase 20 U/L (13-40); BUN/Creatinine Ratio 18.2 (10.0-20.0); Bilirubin, Total 0.7 mg/dL (0.2-1.0); Blood Urea Nitrogen 12 mg/dL (9-23); Calcium 9.7 mg/dL (8.7-10.4); Carbon Dioxide 34 mmol/L (20-30); Chloride 101 mmol/L (98-107); Glucose 101 mg/dL (74-106); Magnesium 2.3 mg/dL (1.6-2.6); Potassium 4.2 mmol/L (3.5-5.1); Sodium 138 mmol/L (136-145); Total Protein 6.4 g/dL (5.7-8.2)
[2024-08-03 04:20] LABS: Basophils # (auto) 0 10 ^3/uL (0-0.2); Eosinophils # (auto) 0.4 10 ^3/uL (0-0.8); Lymphocytes # (auto) 1.5 10 ^3/uL (0.4-5.4); Neutrophils % (auto) 63.8 % (37.0-80.0)
[2024-08-03 04:24] LABS: Basophils % (auto) 0.4 % (0.0-2.0); Eosinophils % (auto) 5.4 % (0.0-7.0); Hematocrit 42.4 % (36.0-46.0); Hemoglobin 14.1 g/dL (12.2-16.2); Lymphocytes % (auto) 19.4 % (10.0-50.0); Mean Corpuscular Hemoglobin 26.4 pg (28.0-32.0); Mean Corpuscular Hgb Conc. 33.2 g/dL (32.0-36.0); Mean Corpuscular Volume 79.7 fL (80.0-100.0); Monocytes # (auto) 0.8 10 ^3/uL (0-1.3); Neutrophils # (auto) 4.8 10 ^3/uL (1.6-8.6); Platelet Count (auto) 275 10^3/uL (140-450); Red Blood Cells 5.32 10^6/uL (4.0-5.20); White Blood Cell 7.5 10^3/uL (4.4-10.8)
[2024-08-03] MEDS ORDERED: LACTULOSE 20Gm/30ML SOLN PO PRN (09:30)
[2024-08-03] MEDS ORDERED: BISACODYL 5 MG EC TAB PO PRN (09:30)
[2024-08-03 09:38] LABS: Urine Bacteria None Seen /hpf (None Seen)
[2024-08-03 09:47] LABS: Urine Blood Negative /uL (Negative); Urine Clarity Clear (Clear); Urine Color Light-Yellow (Yellow); Urine Protein, UAD Negative (Negative); Urine Specific Gravity 1.013 (1.001-1.035); Urine Urobilinogen Normal (Negative); Urine WBC 10 /hpf (0 - 5); Urine pH 6.5 (5.0-9.0)
[2024-08-03] MEDS ORDERED: ENOXAPARIN SOD 30 MG/0.3 ML SYRINGE SC SCH (10:00)
[2024-08-03] MEDS: METOPROLOL TARTRATE 50 MG TAB PO SCH (10:46)
[2024-08-03] MEDS: ENOXAPARIN SOD 40 MG/0.4 ML SYRINGE SC SCH (10:47)
[2024-08-03] MEDS: POTASSIUM CHL 10 Meq TABLET PO ONE (10:47)
[2024-08-03] MEDS: FUROSEMIDE 20 MG/2 ML VIAL IV ONE (10:48)
[2024-08-03] MEDS: AMIODARONE BOLUS KIT 100 ML IV ONE (12:03)
[2024-08-03] MEDS: AMIODARONE 450mg/250ml AE 250 ML IV SCH ×2 (12:04→18:22)
[2024-08-03 12:29] LABS: Urine Bacteria None Seen /hpf (None Seen)
[2024-08-03 13:43] LABS: Urine Blood Negative /uL (Negative); Urine Clarity Clear (Clear); Urine Color Colorless (Yellow); Urine Protein, UAD Negative (Negative); Urine Specific Gravity 1.006 (1.001-1.035); Urine Urobilinogen Normal (Negative); Urine WBC <1 /hpf (0 - 5)
[2024-08-03] MEDS: KETOROLAC TROMETH 30 MG/ML 1ML VIAL IV PRN (14:26)
[2024-08-03] MEDS: LACTULOSE 20Gm/30ML SOLN PO PRN (21:32)
[2024-08-04] VITALS (68 sets, daily range): BP systolic 93–141; BP diastolic 43–96; PULSE 63–98; RESP 7–26; TEMP 97.4–98.9; O2SAT 91–99
[2024-08-04 04:50] LABS: Basophils # (auto) 0 10 ^3/uL (0-0.2); Basophils % (auto) 0.4 % (0.0-2.0); Eosinophils # (auto) 0.5 10 ^3/uL (0-0.8); Eosinophils % (auto) 6.2 % (0.0-7.0); Hematocrit 43.3 % (36.0-46.0); Hemoglobin 14.2 g/dL (12.2-16.2); Lymphocytes # (auto) 1.5 10 ^3/uL (0.4-5.4); Lymphocytes % (auto) 19.8 % (10.0-50.0); Mean Corpuscular Hemoglobin 26.3 pg (28.0-32.0); Mean Corpuscular Hgb Conc. 32.8 g/dL (32.0-36.0); Mean Corpuscular Volume 80.1 fL (80.0-100.0); Monocytes # (auto) 0.8 10 ^3/uL (0-1.3); Monocytes % (auto) 10.7 % (0.0-12.0); Neutrophils # (auto) 4.7 10 ^3/uL (1.6-8.6); Neutrophils % (auto) 62.9 % (37.0-80.0); Nucleated Red Blood Cells % 0.2 %; Platelet Count (auto) 262 10^3/uL (140-450); Red Blood Cells 5.41 10^6/uL (4.0-5.20); White Blood Cell 7.5 10^3/uL (4.4-10.8)
[2024-08-04 04:56] LABS: Alanine Aminotransferase 15 U/L (7-40); Albumin 3.6 g/dL (3.2-4.8); Alkaline Phosphatase 61 U/L (46-116); Anion Gap 2 (5-15); Aspartate Aminotransferase 22 U/L (13-40); BUN/Creatinine Ratio 18.4 (10.0-20.0); Blood Urea Nitrogen 14 mg/dL (9-23); Calcium 9.5 mg/dL (8.7-10.4); Carbon Dioxide 33 mmol/L (20-30); Chloride 100 mmol/L (98-107); Glucose 111 mg/dL (74-106); Magnesium 2.3 mg/dL (1.6-2.6); Sodium 135 mmol/L (136-145)
[2024-08-04 04:57] LABS: Bilirubin, Total 0.8 mg/dL (0.2-1.0); Total Protein 6.1 g/dL (5.7-8.2)
[2024-08-04] MEDS: AMIODARONE HCL 200 MG TAB PO SCH (09:40)
[2024-08-04] MEDS: BISACODYL 5 MG EC TAB PO PRN (09:42)
[2024-08-04] MEDS: predniSONE 20 MG TAB PO ONE (11:56)
[2024-08-04] MEDS: METOPROLOL TARTRATE 50 MG TAB PO SCH (21:42)
[2024-08-05] VITALS (54 sets, daily range): BP systolic 95–137; BP diastolic 39–67; PULSE 65–112; RESP 11–24; TEMP 97.8–98.9; O2SAT 91–100
[2024-08-05 04:13] LABS: Basophils # (auto) 0 10 ^3/uL (0-0.2); Basophils % (auto) 0.4 % (0.0-2.0); Eosinophils # (auto) 0.1 10 ^3/uL (0-0.8); Eosinophils % (auto) 1.1 % (0.0-7.0); Hematocrit 41.5 % (36.0-46.0); Hemoglobin 14.3 g/dL (12.2-16.2); Lymphocytes # (auto) 1.2 10 ^3/uL (0.4-5.4); Lymphocytes % (auto) 11.9 % (10.0-50.0); Mean Corpuscular Hemoglobin 27.1 pg (28.0-32.0); Mean Corpuscular Hgb Conc. 34.4 g/dL (32.0-36.0); Mean Corpuscular Volume 78.8 fL (80.0-100.0); Monocytes # (auto) 0.8 10 ^3/uL (0-1.3); Monocytes % (auto) 7.5 % (0.0-12.0); Neutrophils % (auto) 79.1 % (37.0-80.0); Nucleated Red Blood Cells % 0.1 %; Platelet Count (auto) 313 10^3/uL (140-450); Red Blood Cells 5.27 10^6/uL (4.0-5.20); Red Cell Distribution Width 16.5 % (11.8-14.3); White Blood Cell 10.2 10^3/uL (4.4-10.8)
[2024-08-05 04:36] LABS: Alanine Aminotransferase 21 U/L (7-40); Alkaline Phosphatase 65 U/L (46-116); Anion Gap 8 (5-15); BUN/Creatinine Ratio 26.9 (10.0-20.0); Blood Urea Nitrogen 21 mg/dL (9-23); Calcium 9.8 mg/dL (8.7-10.4); Carbon Dioxide 28 mmol/L (20-30); Chloride 100 mmol/L (98-107); Glucose 114 mg/dL (74-106); Potassium 4.2 mmol/L (3.5-5.1); Sodium 136 mmol/L (136-145)
[2024-08-05 04:37] LABS: Albumin 3.9 g/dL (3.2-4.8)
[2024-08-05 04:38] LABS: Aspartate Aminotransferase 25 U/L (13-40); Bilirubin, Total 0.6 mg/dL (0.2-1.0); Total Protein 6.7 g/dL (5.7-8.2)
[2024-08-05] MEDS: predniSONE 20 MG TAB PO SCH (08:36)
[2024-08-05] MEDS: FLECAINIDE ACETATE 50 MG TAB PO SCH (21:57)
[2024-08-06] VITALS (29 sets, daily range): BP systolic 106–145; BP diastolic 33–76; PULSE 55–86; RESP 9–24; TEMP 97.7–98.7; O2SAT 88–98
[2024-08-06 05:21] LABS: Basophils # (auto) 0 10 ^3/uL (0-0.2); Basophils % (auto) 0.4 % (0.0-2.0); Eosinophils # (auto) 0.5 10 ^3/uL (0-0.8); Hematocrit 40.7 % (36.0-46.0); Hemoglobin 13.6 g/dL (12.2-16.2); Lymphocytes # (auto) 1.8 10 ^3/uL (0.4-5.4); Mean Corpuscular Hemoglobin 26.5 pg (28.0-32.0); Mean Corpuscular Hgb Conc. 33.6 g/dL (32.0-36.0); Mean Corpuscular Volume 78.8 fL (80.0-100.0); Monocytes # (auto) 1.2 10 ^3/uL (0-1.3); Monocytes % (auto) 10.8 % (0.0-12.0); Neutrophils # (auto) 7.9 10 ^3/uL (1.6-8.6); Neutrophils % (auto) 68.8 % (37.0-80.0); Platelet Count (auto) 316 10^3/uL (140-450); Red Blood Cells 5.16 10^6/uL (4.0-5.20); Red Cell Distribution Width 16.1 % (11.8-14.3); White Blood Cell 11.5 10^3/uL (4.4-10.8)
[2024-08-06 05:38] LABS: Alanine Aminotransferase 24 U/L (7-40); Albumin 3.5 g/dL (3.2-4.8); Alkaline Phosphatase 67 U/L (46-116); Anion Gap 3 (5-15); Aspartate Aminotransferase 26 U/L (13-40); BUN/Creatinine Ratio 25.6 (10.0-20.0); Bilirubin, Total 0.3 mg/dL (0.2-1.0); Blood Urea Nitrogen 23 mg/dL (9-23); Calcium 9.7 mg/dL (8.7-10.4); Carbon Dioxide 34 mmol/L (20-30); Chloride 101 mmol/L (98-107); Glucose 89 mg/dL (74-106); Magnesium 2.4 mg/dL (1.6-2.6); Phosphorus 5.6 mg/dL (2.4-5.1); Potassium 4.1 mmol/L (3.5-5.1); Sodium 138 mmol/L (136-145); Total Protein 6.2 g/dL (5.7-8.2)
[2024-08-06] MEDS ORDERED: DOCUSATE SOD 100 MG CAP PO PRN (08:15)
[2024-08-07] VITALS (28 sets, daily range): BP systolic 105–145; BP diastolic 36–64; PULSE 58–85; RESP 12–23; TEMP 98–98.7; O2SAT 89–99
[2024-08-07 12:06] LABS: Alanine Aminotransferase 27 U/L (7-40); Alkaline Phosphatase 65 U/L (46-116); Anion Gap 2 (5-15); BUN/Creatinine Ratio 25.6 (10.0-20.0); Blood Urea Nitrogen 20 mg/dL (9-23); Calcium 9.3 mg/dL (8.7-10.4); Carbon Dioxide 32 mmol/L (20-30); Chloride 102 mmol/L (98-107); Glucose 119 mg/dL (74-106); Magnesium 2.2 mg/dL (1.6-2.6); Sodium 136 mmol/L (136-145)
[2024-08-07 12:25] LABS: Aspartate Aminotransferase 25 U/L (13-40)
[2024-08-07 13:09] LABS: Albumin 3.5 g/dL (3.2-4.8)
[2024-08-07 13:10] LABS: Bilirubin, Total 0.4 mg/dL (0.2-1.0); Phosphorus 2.9 mg/dL (2.4-5.1); Total Protein 6.1 g/dL (5.7-8.2)
[2024-08-08] VITALS (18 sets, daily range): BP systolic 98–134; BP diastolic 38–60; PULSE 61–78; RESP 12–25; TEMP 97.5–98.2; O2SAT 91–99
[2024-08-08 05:03] LABS: Basophils # (auto) 0.1 10 ^3/uL (0-0.2); Monocytes # (auto) 0.8 10 ^3/uL (0-1.3)
[2024-08-08 05:05] LABS: Basophils % (auto) 0.7 % (0.0-2.0); Eosinophils # (auto) 0.7 10 ^3/uL (0-0.8); Eosinophils % (auto) 9.3 % (0.0-7.0); Hematocrit 42.7 % (36.0-46.0); Hemoglobin 14.3 g/dL (12.2-16.2); Lymphocytes # (auto) 1.5 10 ^3/uL (0.4-5.4); Lymphocytes % (auto) 18.7 % (10.0-50.0); Mean Corpuscular Hemoglobin 26.7 pg (28.0-32.0); Mean Corpuscular Hgb Conc. 33.6 g/dL (32.0-36.0); Mean Corpuscular Volume 79.4 fL (80.0-100.0); Monocytes % (auto) 10.3 % (0.0-12.0); Neutrophils # (auto) 4.8 10 ^3/uL (1.6-8.6); Platelet Count (auto) 315 10^3/uL (140-450); Red Blood Cells 5.37 10^6/uL (4.0-5.20); Red Cell Distribution Width 17.2 % (11.8-14.3); White Blood Cell 7.8 10^3/uL (4.4-10.8)
[2024-08-08 05:16] LABS: Anion Gap 2 (5-15); Carbon Dioxide 32 mmol/L (20-30); Chloride 104 mmol/L (98-107); Potassium 4.3 mmol/L (3.5-5.1); Sodium 138 mmol/L (136-145)
[2024-08-08 05:17] LABS: Calcium 9.2 mg/dL (8.7-10.4)
[2024-08-08 05:21] LABS: Glucose 119 mg/dL (74-106)
[2024-08-08 05:22] LABS: BUN/Creatinine Ratio 23.2 (10.0-20.0); Blood Urea Nitrogen 19 mg/dL (9-23); Magnesium 2.3 mg/dL (1.6-2.6)
[2024-08-08 09:59] LABS: Base Excess 3.1 mmol/L (-2.0-3.0)
[2024-08-08] MEDS: HYDROcodone-ACET 5/325MG TAB PO PRN (10:08)
[2024-08-09] VITALS (14 sets, daily range): BP systolic 109–128; BP diastolic 31–51; PULSE 57–67; RESP 11–21; TEMP 97–98.1; O2SAT 90–100
[2024-08-09 05:12] LABS: Basophils # (auto) 0.1 10 ^3/uL (0-0.2); Eosinophils # (auto) 0.7 10 ^3/uL (0-0.8); Hemoglobin 14.2 g/dL (12.2-16.2); Lymphocytes # (auto) 1.5 10 ^3/uL (0.4-5.4); Mean Corpuscular Hgb Conc. 33.2 g/dL (32.0-36.0); Monocytes # (auto) 0.6 10 ^3/uL (0-1.3); Monocytes % (auto) 8.9 % (0.0-12.0)
[2024-08-09 05:14] LABS: Basophils % (auto) 0.9 % (0.0-2.0); Eosinophils % (auto) 9.6 % (0.0-7.0); Hematocrit 42.7 % (36.0-46.0); Lymphocytes % (auto) 20.7 % (10.0-50.0); Mean Corpuscular Hemoglobin 26.3 pg (28.0-32.0); Neutrophils # (auto) 4.3 10 ^3/uL (1.6-8.6); Neutrophils % (auto) 59.9 % (37.0-80.0); Nucleated Red Blood Cells % 0.1 %; Platelet Count (auto) 342 10^3/uL (140-450); Red Cell Distribution Width 16.5 % (11.8-14.3); White Blood Cell 7.1 10^3/uL (4.4-10.8)
[2024-08-09 05:21] LABS: Chloride 106 mmol/L (98-107); Potassium 4.4 mmol/L (3.5-5.1); Sodium 138 mmol/L (136-145)
[2024-08-09 05:22] LABS: Anion Gap 4 (5-15); Carbon Dioxide 28 mmol/L (20-30)
[2024-08-09 05:23] LABS: Calcium 9.4 mg/dL (8.7-10.4)
[2024-08-09 05:27] LABS: Glucose 104 mg/dL (74-106)
[2024-08-09 05:28] LABS: BUN/Creatinine Ratio 16.9 (10.0-20.0); Blood Urea Nitrogen 13 mg/dL (9-23); Magnesium 2.3 mg/dL (1.6-2.6)
[2024-08-09 08:44] LABS: Base Excess 4.9 mmol/L (-2.0-3.0)
[2024-08-09] MEDS ORDERED: MET50T PO (09:55)
[2024-08-09] MEDS ORDERED: DOCU-265 PO (09:55)
[2024-08-09] MEDS ORDERED: FLE50T PO (09:55)
[2024-08-09] MEDS ORDERED: LIDO5DIS21 TOP (10:07)
== END 2024-08-09 12:30 | disposition home or self-care (01) | DRG 163 ==
LOC: SUR 06:15 → CATH ICU 14:10 → ICU WEST 14:38 → DOU IN ICU 08-05 04:40
PROVIDERS: ADMIT Thoracic Surgery (Cardiothoracic Vascular Surgery); ATTEND Internal Medicine
PROC: 0BBJ0ZZ Excision of Left Lower Lung Lobe, Open Approach (ICD-10-PCS; 2024-07-29)
PROC: 0BBD0ZZ Excision of Right Middle Lung Lobe, Open Approach (ICD-10-PCS; 2024-07-29)
PROC: 0BNK0ZZ Release Right Lung, Open Approach (ICD-10-PCS; 2024-07-29)
PROC: 0W9900Z Drainage of Right Pleural Cavity with Drainage Device, Open Approach (ICD-10-PCS; 2024-07-29)
PROC: 0BTC0ZZ Resection of Right Upper Lung Lobe, Open Approach (ICD-10-PCS; principal; 2024-07-29 07:34)
PROC: 5A09357 Assistance with Respiratory Ventilation, Less than 24 Consecutive Hours, Continuous Positive Airway Pressure (ICD-10-PCS; 2024-08-02)
DX: C34.11 Malignant neoplasm of upper lobe, right bronchus or lung (principal); J96.01 Acute respiratory failure with hypoxia; E87.29 Other acidosis; I47.10 Supraventricular tachycardia, unspecified; J98.11 Atelectasis; J93.83 Other pneumothorax; J93.82 Other air leak; I50.32 Chronic diastolic (congestive) heart failure; I48.20 Chronic atrial fibrillation, unspecified; J44.9 Chronic obstructive pulmonary disease, unspecified; E66.01 Morbid (severe) obesity due to excess calories; K66.0 Peritoneal adhesions (postprocedural) (postinfection); E78.5 Hyperlipidemia, unspecified; K59.00 Constipation, unspecified; D72.829 Elevated white blood cell count, unspecified; E11.9 Type 2 diabetes mellitus without complications; E88.810 Metabolic syndrome; I11.0 Hypertensive heart disease with heart failure; Z87.891 Personal history of nicotine dependence; Z82.49 Family history of ischemic heart disease and other diseases of the circulatory system; Z82.5 Family history of asthma and other chronic lower respiratory diseases; Z82.62 Family history of osteoporosis; Z83.3 Family history of diabetes mellitus; Z96.642 Presence of left artificial hip joint; Z68.37 Body mass index [BMI] 37.0-37.9, adult; Z79.4 Long term (current) use of insulin; R82.71 Bacteriuria
CPT/HCPCS: 36415; 36600; 71045; 71275; 80048; 80053; 81001; 82805; 82962; 83036; 83735; 84100; 84132; 84443; 85025; 85610; 85730; 86850; 86900; 86901; 86920; 87081; 87086; 94640; 94660; 97110; 97116; 97163; 97530; G0378; J0131; J0171; J0690; J1100; J1885; J2001; J2250; J2405; J2704; J3480; J3490; J7060

== ENCOUNTER 2024-10-01 12:56 | Emergency (ER) | payer OTHER ==
[~2024-10-01] VITALS: Ht 167.6 cm; Wt 91.0 kg
[~2024-10-01 12:56] MED LIST changes: +DOCU-265 PO; +FLE50T PO; +LIDO5DIS21 TOP; +MET50T PO
[2024-10-01] MEDS ORDERED: LEVO500T91 PO (13:35)
[2024-10-01] MEDS ORDERED: PRED10TA PO (13:35)
[2024-10-01 13:53] LABS: Basophils # (auto) 0 10 ^3/uL (0-0.2); Basophils % (auto) 0.5 % (0.0-2.0); Hemoglobin 14.2 g/dL (12.2-16.2); Lymphocytes # (auto) 1.5 10 ^3/uL (0.4-5.4); Neutrophils # (auto) 4.9 10 ^3/uL (1.6-8.6)
[2024-10-01 13:55] LABS: Chloride 103 mmol/L (98-107); Potassium 3.6 mmol/L (3.5-5.1); Sodium 140 mmol/L (136-145)
[2024-10-01 13:56] LABS: Anion Gap 7 (5-15); Calcium 10.3 mg/dL (8.7-10.4); Carbon Dioxide 30 mmol/L (20-31); Eosinophils # (auto) 0.1 10 ^3/uL (0-0.8); Eosinophils % (auto) 0.7 % (0.0-7.0); Hematocrit 41.7 % (36.0-46.0); Mean Corpuscular Hemoglobin 26.7 pg (28.0-32.0); Mean Corpuscular Volume 78.6 fL (80.0-100.0); Monocytes # (auto) 0.8 10 ^3/uL (0-1.3); Monocytes % (auto) 10.6 % (0.0-12.0); Neutrophils % (auto) 67.2 % (37.0-80.0); Platelet Count (auto) 305 10^3/uL (140-450); Red Cell Distribution Width 16.7 % (11.8-14.3); White Blood Cell 7.3 10^3/uL (4.4-10.8)
[2024-10-01 14:01] LABS: BUN/Creatinine Ratio 11.5 (10.0-20.0); Blood Urea Nitrogen 10 mg/dL (9-23); Glucose 136 mg/dL (74-106)
[2024-10-01 14:48] VITALS: BP 126/55; PULSE 74; RESP 17; TEMP 98.7; O2SAT 97
== END 2024-10-01 14:56 | disposition home or self-care (01) ==
LOC: ER 12:59
DX: J98.4 Other disorders of lung (principal); J44.9 Chronic obstructive pulmonary disease, unspecified; Z85.9 Personal history of malignant neoplasm, unspecified; Z87.891 Personal history of nicotine dependence; Z79.52 Long term (current) use of systemic steroids; Z79.899 Other long term (current) drug therapy
CPT/HCPCS: 36415; 71045; 80048; 85025

== ENCOUNTER 2024-10-08 09:18 | Inpatient (IN) | payer OTHER ==
[2024-10-08] VITALS (7 sets, daily range): BP systolic 101–106; BP diastolic 25–81; PULSE 60–70; RESP 13–18; TEMP 97–98.6; O2SAT 94–98
[~2024-10-08] VITALS: Ht 167.6 cm; Wt 95.7 kg
[~2024-10-08 09:18] MED LIST changes: +LEVO500T91 PO; +PRED10TA PO
--- NOTE | 2024-10-08 10:15 | ED.PDOC ---
SOB-HPI HPI Comments 68y F who presents to the ED for chief complaint of shortness of breath. Pt states she has been having shortness of breath with cough and nausea for the past 1 week. Pt states she came to the ED 1 week for similar symptoms and states she was diagnosed with pneumonitis and given steroids and antibiotic and discharged. Pt states she has been taking all her medications but states she is having R sided flank pain radiating to the abdomen with associated sharp pains when she takes deep breaths and came back to the ED. Pt has history of COPD and on 2 L via nc at 96% o2 sat in the ED. Pt denies any other symptoms at this time. Chief Complaint: Shortness of Breath Time Seen by MD: 10:13 Primary Care Provider: UNKNOWN Reviewed notes: Medications, Allergies Information Source: Patient, Spouse Mode of Arrival: Ambulatory Brought in by: spouse Past Medical History PAST MEDICAL HISTORY: Cancer, COPD, HTN Surgical History: Unknown Surgical History (Other): R hip replacement EXCELSIOR MACHINE OPERATOR History: Denies all EXCELSIOR MACHINE OPERATOR Hx Family History Family History: Unknown Social History Smoker: Quit Greater Than 1 Year Alcohol: Occasionally Drugs: Denies Drug Use Lives In: Home Constitutional: denies: chills, diaphoresis, fatigue, fever, malaise, sweats, weakness, others EENTM: denies: blurred vision, double vision, ear bleeding, ear discharge, ear drainage, ear pain, ear ringing, eye pain, eye redness, hearing loss, mouth pain, mouth swelling, nasal discharge, nose bleeding, nose congestion, nose pain, photophobia, tearing, throat pain, throat swelling, voice changes, others Respiratory: reports: cough, shortness of breath; denies: hemoptysis, orthopnea, SOB at rest, SOB with excertion, stridor, wheezing, others Cardiovascular: denies: chest pain, dizzy spells, diaphoresis, Dyspnea on exertion, edema, irregular heart beat, left arm pain, lightheadedness, palpitations, PND, syncope, others Gastrointestinal: reports: nausea; denies: abdomen distended, abdominal pain, blood streaked bowels, constipated, diarrhea, dysphagia, difficulty swallowing, hematemesis, melena, poor appetite, poor fluid intake, rectal bleeding, rectal pain, vomiting, others Genitourinary: denies: abnormal vagina bleeding, burning, dyspareunia, dysuria, flank pain, frequency, hematuria, incontinence, pain, , vagina discharge, urgency, others Neurological: denies: dizziness, fainting, headache, left sided numbness, left sided weakness, numbness, paresthesia, pre-existing deficit, right sided numbness, right sided weakness, seizure, speech problems, tingling, tremors, weakness, others Musculoskeletal: denies: back pain, gout, joint pain, joint swelling, muscle pa in, muscle stiffness, neck pain, others Integumetry: denies: bruises, change in color, change in hair/nails, dryness, laceration, lesions, lumps, rash, wounds, others Allergic/Immunocompromised: denies: Difficulty Healing, Frequent Infections, Hives, Itching, others Hematologic/Lymphatic: denies: anemia, blood clots, easy bleeding, easy bruising, swollen glands, others Endocrine: denies: excessive hunger, excessive sweating, excessive thirst, excessive urination, flushing, intolerance to cold, intolerance to heat, unexplained weight gain, unexplained weight loss, others Psychiatric: denies: anxiety, bipolar disorder, depression, hopeless, panic disorder, schizophrenia, sleepless, suicidal, others All Other Systems: Reviewed and Negative Physical Exam General Appearance: Moderate Distress HEENT: Normal ENT Inspection, Pharynx Normal, TMs Normal Neck: Full Range of Motion, Non-Tender, Normal, Normal Inspection Respiratory: Chest Non-Tender, Lungs Clear, No Accessory Muscle Use, No Respiratory Distress, Normal Breath Sounds Cardiovascular: No Edema, No JVD, No Murmur, No Gallop, Normal Peripheral Pulses, Regular Rate/Rhythm Breast Exam: Deferred Gastrointestinal: No Organomegaly, Non Tender, No Pulsatile Mass, Normal Bowel Sounds, Soft Genitalia: Deferred Pelvic: Deferred Rectal: Deferred Extremities: No calf tenderness, Normal capillary refill, Normal inspection, Normal range of motion, Non-tender, No pedal edema Musculoskeletal : Apperance: Normal Neurologic: Alert, net wpf developer II-XII nml as Tested, No Motor Deficits, Normal Affect, Normal Mood, No Sensory Deficits Cerebellar Function: NOT DONE Reflexes: NOT DONE Skin: Dry, Normal Color, Warm Peripheral Pulses: 3+ Radial (R), 3+ Radial (L) Lymphatic: No Adenopathy Was a procedure done? Was a procedure done?: No Differential Dx Differential Diagnosis: Anxiety, Asthma, Bronchitis, CHF, COPD, Pneumonia, Pulmonary Embolism, Respiratory Distress, Allergic Rhinitis, Pharyngitis, URI Comments musculoskeletal pain, pleuritis, X-Ray, Labs, Meds, VS Vital Signs Date Time Temp Pulse Resp B/P (MAP) Pulse Ox O2 Delivery O2 Flow Rate FiO2 10/08/24 12:00 63 14 106/81 (89) 96 10/08/24 10:15 70 13 98 Nasal Cannula* 2 28 10/08/24 10:15 70 13 109/70 (83) 98 10/08/24 10:03 68 10/08/24 09:52 97.0 81 16 110/56 (74) 96 Lab Test 10/08/24 10:25 10/08/24 10:00 Range/Units White Blood Count 6.6 4.4-10.8 10^3/uL Red Blood Count 5.15 4.0-5.20 10^6/uL Hemoglobin 13.7 12.2-16.2 g/dL Hematocrit 40.9 36.0-46.0 % Mean Corpuscular Volume 79.5 L 80.0-100.0 fL Mean Corpuscular Hemoglobin 26.6 L 28.0-32.0 pg Mean Corpuscular Hemoglobin Concent 33.5 32.0-36.0 g/dL Red Cell Distribution Width 16.5 H 11.8-14.3 % Platelet Count 314 140-450 10^3/uL Mean Platelet Volume 7.7 6.9-10.8 fL Neutrophils (%) (Auto) 69.4 37.0-80.0 % Lymphocytes (%) (Auto) 20.6 10.0-50.0 % Monocytes (%) (Auto) 8.8 0.0-12.0 % Eosinophils (%) (Auto) 0.6 0.0-7.0 % Basophils (%) (Auto) 0.6 0.0-2.0 % Neutrophils # (Auto) 4.6 1.6-8.6 10 ^3/uL Lymphocytes # (Auto) 1.4 0.4-5.4 10 ^3/uL Monocytes # (Auto) 0.6 0-1.3 10 ^3/uL Eosinophils # (Auto) 0 0-0.8 10 ^3/uL Basophils # (Auto) 0 0-0.2 10 ^3/uL Nucleated Red Blood Cells 0.1 % Sodium Level 139 136-145 mmol/L Potassium Level 3.5 3.5-5.1 mmol/L Chloride Level 103 98-107 mmol/L Carbon Dioxide Level 28 20-31 mmol/L Anion Gap 8 5-15 Blood Urea Nitrogen 10 9-23 mg/dL Creatinine 0.75 0.550-1.02 mg/dL Glomerular Filtration Rate Calc 87 >90 mL/min BUN/Creatinine Ratio 13.3 10.0-20.0 Serum Glucose 114 H 74-106 mg/dL Calcium Level 9.9 8.7-10.4 mg/dL Troponin I High Sensitivity < 3 L </=34 ng/L Urine Color Colorless Yellow Urine Clarity Clear Clear Urine pH 6.0 5.0-9.0 Urine Specific [place] 1.006 1.001-1.035 Urine Protein Negative Negative Urine Ketones Negative Negative Urine Blood Negative Negative /uL Urine Nitrite Negative Negative Urine Bilirubin Negative Negative Urine Urobilinogen Normal Negative mg/dL Urine Leukocyte Esterase 2+ Negative /uL Urine RBC 4 0 - 4 /hpf Urine WBC 5 0 - 5 /hpf Urine Squamous Epithelial Cells Few <5 /hpf Urine Bacteria Few H None Seen /hpf Urine Glucose Normal Normal mg/dL Patient alert. Was seen here last week for similar symptom. She is on oxygen. Vitals stable. Spoke with pulmonology. Chest x-ray reviewed does not show any acute process. She is not short of breath. No new onset. Urinalysis shows UTI. Was given prescription of Levaquin antibiotic. Cardiac marker within normal limits. No leg swelling. No chest pain. Reviewed her previous visit. She is not using accessory muscles. She is not tachycardic. She is above 95% on oxygenation. She does not meet any criteria. EKG reviewed does not show any acute changes. Explained to the patient treatment plan. Was told to follow up with her primary care physician. Was told to come back if there is any problem. Time of 1ST Reevaluation: 10:45 Reevaluation 1ST: Unchanged Patient Education/Counseling: Diagnosis, Treatment Family Education/Counseling: No Family Present Departure 1 Departure Time of Disposition: 13:41 Impression: Primary Impression: Pneumonitis Disposition: 01 HOME / SELF CARE / HOMELESS Condition: Good e-Prescriptions Levofloxacin Hemihydrate (LEVOFLOXACIN) 500 Mg Tab 500 MG PO DAILY for 7 Days, #7 MG Prov: CHRISTEN,LAZARUS MD 10/08/24 Prednisone (Prednisone) 10 Mg Tab 10 MG PO DAILY for 5 Days, #5 MG Prov: LAZARUS VELÁSQUEZ MD 10/08/24 Discharged With: Self Critical Care Note Critical Care Time?: No Stability Stability form required: No Heart Score Heart Score: Heart Score Response (Comments) Value History Slightly Suspicious 0 EKG Normal 0 Age >65 2 Risk Factors 1 or 2 risk factors 1 Troponin Normal limit 0 Total 3 I personally scribed for LAZARUS VELÁSQUEZ MD ([email or web address]) on 10/08/24 at 10:15. Electronically submitted by Meera Bryan ([email or web address]). LAZARUS VELÁSQUEZ MD Oct 08, 2024 10:15
[2024-10-08 10:54] LABS: Urine Bacteria FEW /hpf (None Seen); Urine Blood Negative /uL (Negative); Urine Clarity Clear (Clear); Urine Color Colorless (Yellow); Urine Protein, UAD Negative (Negative); Urine Specific Gravity 1.006 (1.001-1.035); Urine Urobilinogen Normal (Negative); Urine WBC 5 /hpf (0 - 5)
[2024-10-08 11:08] LABS: Basophils # (auto) 0 10 ^3/uL (0-0.2); Basophils % (auto) 0.6 % (0.0-2.0); Eosinophils # (auto) 0 10 ^3/uL (0-0.8); Lymphocytes # (auto) 1.4 10 ^3/uL (0.4-5.4); Neutrophils # (auto) 4.6 10 ^3/uL (1.6-8.6)
[2024-10-08 11:10] LABS: Eosinophils % (auto) 0.6 % (0.0-7.0); Hematocrit 40.9 % (36.0-46.0); Hemoglobin 13.7 g/dL (12.2-16.2); Lymphocytes % (auto) 20.6 % (10.0-50.0); Mean Corpuscular Hemoglobin 26.6 pg (28.0-32.0); Mean Corpuscular Hgb Conc. 33.5 g/dL (32.0-36.0); Mean Corpuscular Volume 79.5 fL (80.0-100.0); Monocytes # (auto) 0.6 10 ^3/uL (0-1.3); Monocytes % (auto) 8.8 % (0.0-12.0); Neutrophils % (auto) 69.4 % (37.0-80.0); Nucleated Red Blood Cells % 0.1 %; Platelet Count (auto) 314 10^3/uL (140-450); Red Blood Cells 5.15 10^6/uL (4.0-5.20); Red Cell Distribution Width 16.5 % (11.8-14.3); White Blood Cell 6.6 10^3/uL (4.4-10.8)
--- NOTE | 2024-10-08 11:11 | DVH ---
CHEST RADIOGRAPH Indication:sob Technique: AP view Comparison: XY CHEST PORTABLE on DOS: 10/01/24, XY CHEST XRAY 1 VIEW on DOS: 08/09/24, XY CHEST PORTABL E on DOS: 08/09/24, XY CHEST XRAY 1 VIEW on DOS: 08/09/24, XY CHEST PORTABLE on DOS: 08/08/24, XY CHEST POR TABLE on DOS: 10/01/24 FINDINGS: Heart size is enlarged. Aorta is tortuous. There is some pleural and parenchymal scarring in the righ t lung with volume loss in the right upper lung zone IMPRESSION: 1. Cardiomegaly. Compared to previous exam continuing evidence of volume loss in the right upper lung zone with some pleural and parenchymal scarring
[2024-10-08 11:13] LABS: Chloride 103 mmol/L (98-107); Potassium 3.5 mmol/L (3.5-5.1); Sodium 139 mmol/L (136-145)
[2024-10-08 11:14] LABS: Anion Gap 8 (5-15); Calcium 9.9 mg/dL (8.7-10.4); Carbon Dioxide 28 mmol/L (20-31)
[2024-10-08 11:19] LABS: BUN/Creatinine Ratio 13.3 (10.0-20.0); Blood Urea Nitrogen 10 mg/dL (9-23); Glucose 114 mg/dL (74-106)
[2024-10-08] MEDS ORDERED: ALBUTEROL SULF 2.5 MG/0.5ML(0.5%) NEB SOLN NEB PRN (14:15)
[2024-10-08] MEDS ORDERED: MORPHINE SULFATE INJ 2 MG/ml SYRG IV PRN (14:15)
[2024-10-08] MEDS ORDERED: ACETAMINOPHEN 500 MG TAB PO PRN (14:15)
[2024-10-08] MEDS ORDERED: IPRATROPIUM BROM 0.5 MG/2.5ML INH SOL NEB PRN (14:15)
[2024-10-08] MEDS ORDERED: ONDANSETRON HCL 4 MG/2 ML VIAL IV PRN (14:15)
--- NOTE | 2024-10-08 14:16 | DVHHP2 ---
History of Present Illness Reason for Visit: Severe right flank pain History of Present Illness The patient was a 68-year-old female presenting to the emergency room with right flank and right upper quadrant pain. The patient states that she was seen in our emergency room on 10/01/2024 with similar symptoms, at that time diagnosed with pneumonitis. Patient was given antibiotic course which she completed with no resolution of her symptoms. Patient denies having any fevers, chills, cough, nausea/vomiting, diarrhea. Assessment of the patient reveals severe tenderness with right upper quadrant palpation. Significant history of the patient includes lung cancer with recent lobectomy, hypertension, atrial fibrillation, and dyslipidemia. The patient also has chronic hypoxic respiratory failure on 2-3 L of oxygen at home. Cardiovascular: AFIB, HTN, hyperipidemia Pulmonary: COPD, Other (Lung cancer), Pneumonia Past Surgical History: Other (Right upper lobe lobectomy) Family History: None Smoke: Quit ALCOHOL: none Drugs: None Lives: with Family Review of Systems Constitutional: No: Fever, Chills, Sweats, Weakness, Malaise, Other Eyes: No: Pain, Vision change, Conjunctivae inflammation, Eyelid inflammation, Other, Redness ENT: No: Ear pain, Ear discharge, Nose pain, Nose discharge, Nose congestion, Mouth pain, Mouth swelling, Throat pain, Throat swelling, Other Respiratory: No: Cough, Dry, Shortness of breath, SOB with excertion, Wheezing, Hemoptysis, Pleuritic Pain, Sputum, Wheezing, Other Gastrointestinal: Abdominal Pain Genitourinary: No Dysuria, No Frequency, No Incontinence, No Hematuria, No Retention, No Other Musculoskeletal: No: other, neck pain, shoulder pain, arm pain, back pain, hand pain, leg pain, foot pain Skin: No: Rash, Lesions, Jaundice, Bruising, Other Neurological: No: Weakness, Numbness, Incoordination, Change in speech, Confusion, Seizures, Other Allergies: Coded Allergies: NO KNOWN ALLERGIES (Unverified , 07/22/24) Exam Vital Signs Vital Signs Date Time Temp Pulse Resp B/P (MAP) Pulse Ox O2 Delivery O2 Flow Rate FiO2 10/08/24 12:00 63 14 106/81 (89) 96 10/08/24 10:15 Nasal Cannula* 2 28 10/08/24 09:52 97.0 General Appearance: Alert, Oriented X3, Cooperative, No acute distress HEENT: Atraumatic, PERRLA Respiratory: Clear to auscultation, Normal air movement Cardiovascular: Normal S1, Normal S2 Abdominal: Normal bowel sounds, Other (Tenderness to palpation of right upper quad) Extremities: No clubbing, No cyanosis, No edema, Normal pulses Skin: No rashes, No breakdown Neuro: Normal gait, Normal speech, Strength at 5/5 X4 ext, Sensation intact, Cranial nerves 3-12 NL Psych/Mental Status: Mental status NL, Mood NL Labs/Xrays Labs Test 10/08/24 10:25 10/08/24 10:00 Range/Units White Blood Count 6.6 4.4-10.8 10^3/uL Red Blood Count 5.15 4.0-5.20 10^6/uL Hemoglobin 13.7 12.2-16.2 g/dL Hematocrit 40.9 36.0-46.0 % Mean Corpuscular Volume 79.5 L 80.0-100.0 fL Mean Corpuscular Hemoglobin 26.6 L 28.0-32.0 pg Mean Corpuscular Hemoglobin Concent 33.5 32.0-36.0 g/dL Red Cell Distribution Width 16.5 H 11.8-14.3 % Platelet Count 314 140-450 10^3/uL Mean Platelet Volume 7.7 6.9-10.8 fL Neutrophils (%) (Auto) 69.4 37.0-80.0 % Lymphocytes (%) (Auto) 20.6 10.0-50.0 % Monocytes (%) (Auto) 8.8 0.0-12.0 % Eosinophils (%) (Auto) 0.6 0.0-7.0 % Basophils (%) (Auto) 0.6 0.0-2.0 % Neutrophils # (Auto) 4.6 1.6-8.6 10 ^3/uL Lymphocytes # (Auto) 1.4 0.4-5.4 10 ^3/uL Monocytes # (Auto) 0.6 0-1.3 10 ^3/uL Eosinophils # (Auto) 0 0-0.8 10 ^3/uL Basophils # (Auto) 0 0-0.2 10 ^3/uL Nucleated Red Blood Cells 0.1 % Sodium Level 139 136-145 mmol/L Potassium Level 3.5 3.5-5.1 mmol/L Chloride Level 103 98-107 mmol/L Carbon Dioxide Level 28 20-31 mmol/L Anion Gap 8 5-15 Blood Urea Nitrogen 10 9-23 mg/dL Creatinine 0.75 0.550-1.02 mg/dL Glomerular Filtration Rate Calc 87 >90 mL/min BUN/Creatinine Ratio 13.3 10.0-20.0 Serum Glucose 114 H 74-106 mg/dL Calcium Level 9.9 8.7-10.4 mg/dL Troponin I High Sensitivity < 3 L </=34 ng/L Urine Color Colorless Yellow Urine Clarity Clear Clear Urine pH 6.0 5.0-9.0 Urine Specific [place] 1.006 1.001-1.035 Urine Protein Negative Negative Urine Ketones Negative Negative Urine Blood Negative Negative /uL Urine Nitrite Negative Negative Urine Bilirubin Negative Negative Urine Urobilinogen Normal Negative mg/dL Urine Leukocyte Esterase 2+ Negative /uL Urine RBC 4 0 - 4 /hpf Urine WBC 5 0 - 5 /hpf Urine Squamous Epithelial Cells Few <5 /hpf Urine Bacteria Few H None Seen /hpf Urine Glucose Normal Normal mg/dL Assessment/Plan Assessment/Plan Impression: -abdominal pain -history of lung CA with recent right upper lobe lobectomy -atrial fibrillation -obesity -acute on chronic hypoxic respiratory failure -dyslipidemia -UTI Plan: -admit to Medical/Surgical unit. -given amount of tenderness with palpation, CT scan of chest, abdomen, pelvis -continue beta-albertina therapy and flecainide -O2 supplementation to keep saturation greater than 92% -antibiotic therapy: Rocephin for noted UTI -further course of care per findings of CT scans Total time spent with patient discussing and formulating plan of care: 35 minutes. This medical document was created using an electronic medical record system with [employer] dictation system. Although this document has been carefully reviewed, there may still be some phonetic and typographical errors. These areas are purely typographical due to imperfections of the software programs, and do not reflect any compromise in the patient's medical care. Plan discussed with: Patient, Other (RN) My Orders Orders - JIMENA RICHARD OPERATIONS ADMINISTRATIVE ASSISTANT Procedure Category Date Status Time Admit ADMIT 10/08/24 Verified 14:04 Oxygen By Nasal RT 10/08/24 Verified Cannula 14:04 Ct Ab Pel Wo Con-No CT 10/08/24 Verified Oral Or Iv 14:[address] 10/08/24 Verified 14:04 Morphine Sulfate PHA 10/08/24 Verified Injection 14:15 Hydrocodone-Acet PHA 10/08/24 Verified 5/325mg Tab (Myton 14:15 Acetaminophen Tablet PHA 10/08/24 Verified (Tylenol Tablet) 14:15 Ondansetron Hcl PHA 10/08/24 Verified (Zofran) 14:15 Docusate Sodium PHA 10/08/24 Verified Capsule (Colace 14:15 Albuterol Medneb PHA 10/08/24 Verified (Ventolin Medneb) 14:15 Ipratropium Medneb PHA 10/08/24 Verified (Atrovent Medneb) 14:15 Erythrocyte LAB 10/08/24 Verified Sedimentation Rate 14:04 C-Reactive Protein LAB 10/08/24 Verified 14:04 Ceftriaxone Ivpb PHA 10/08/24 Verified Rocephin 14:15 Cardiac DIET 10/08/24 Verified Diet-2gna,Lofat,Lochol Dinner Flecainide Tablet PHA 10/08/24 Verified (Tambocor Tablet) 22:00 Metoprolol Tartrate PHA 10/08/24 Verified Tablet (Lopressor Ta 22:00 Comprehensive LAB 10/08/24 Verified Metabolic Panel 14:04 Date of Service: Oct 08, 2024 Billing Provider: JIMENA RICHARD NP Common Visit Codes: [id number] INP/OBS CARE (HIGH) JIMENA RICHARD NP Oct 08, 2024 14:16
[2024-10-08] MEDS: HYDROcodone-ACET 5/325MG TAB PO PRN (14:30)
[2024-10-08] MEDS: cefTRIAXone 1GM/50ML D5W 50 ML IV SCH (14:30)
--- NOTE | 2024-10-08 15:10 | DVH ---
Exam: CT CHST AB PEL WO CON-NO IV/ORAL History: DYSPNEA, CHEST PAIN; RUQ PAIN Comparison Study: Prior films compared to study dated 08/02/24 Technique: Multidetector spiral CT of the chest, abdomen and pelvis was performed from lower neck to pubic symphysis Axial, coronal and sagittal multiplanar reformats were performed by the technologist on a separate workstation. Radiation Dose : Chest/Abdomen/Pelvis: CTDIvol 24.3 mGy, DLP 1637.07 mGy*cm. Findings: Lower neck: Thyroid is heterogeneous. Lungs: Postsurgical changes in the right lung with associated curvilinear scarring. Atelectasis and s carring in the lung bases. Pneumothorax has resolved. Chest tubes have been removed. Heart/Vascular Structures: Normal heart size. No pericardial effusion. Lymph Nodes: No adenopathy Pleura: Trace right pleural effusion. Liver: Subcentimeter hypodensity in the periphery of the right lobe of the liver. Gallbladder and Biliary Tree: Gallbladder contracted. Spleen: Unremarkable Pancreas: The pancreas is normal in appearance without focal lesions or abnormal enhancement. Adrenal Glands: Bilateral adrenal nodules measuring up to 16 mm on the right and 15 mm on the left. Kidneys: Punctate right renal calculus. No hydronephrosis. Bladder: Unremarkable Bowel: The stomach is grossly normal in appearance. Small bowel and colon are normal in caliber and d istribution. The appendix is not visualized; however, no secondary findings of acute appendicitis id entified. Ascites: Absent Lymphadenopathy: No mesenteric, retroperitoneal or periportal lymphadenopathy. Abdominal Wall and Mesentery: Unremarkable. Vasculature: The visualized abdominal aorta is normal in size and caliber. There is calcified atheros clerotic plaque involving the aorta and its branches. Abdominal and pelvic vessels demonstrate normal enhancement. Pelvic Organs: Obscured by metallic artifact from left hip arthroplasty. Musculoskeletal: No aggressive focal bony lesions, acute fractures or dislocation. IMPRESSION: 1. No acute findings involving the chest, abdomen or pelvis. Heterogeneous thyroid. Postsurgical dale ges in the right lung. Trace right pleural effusion. Bilateral adrenal nodules. Subcentimeter hypoden sity in the right lobe of the liver is nonspecific. This could be further evaluated with CT or MRI of the abdomen with contrast. Punctate right renal calculus. Limited evaluation of the pelvis. HS:Y
[2024-10-08 16:15] LABS: Alanine Aminotransferase 12 U/L (7-40); Albumin 3.7 g/dL (3.2-4.8); Alkaline Phosphatase 89 U/L (46-116); Anion Gap 5 (5-15); Aspartate Aminotransferase 12 U/L (13-40); Bilirubin, Total 0.5 mg/dL (0.2-1.0); Blood Urea Nitrogen 10 mg/dL (9-23); Calcium 9.6 mg/dL (8.7-10.4); Carbon Dioxide 32 mmol/L (20-31); Chloride 103 mmol/L (98-107); Glucose 134 mg/dL (74-106); Potassium 3.3 mmol/L (3.5-5.1); Sodium 140 mmol/L (136-145); Total Protein 6.5 g/dL (5.7-8.2)
[2024-10-08 16:23] LABS: CRP High Sensitivity 1.78 mg/dL (<1.0)
[2024-10-08 16:35] LABS: Erythrocyte Sedimentation Rate 27 mm/hr (0-20)
[2024-10-08] MEDS: POTASSIUM EFFERVESENT TAB 25 MEQ PO ONE (21:25)
[2024-10-08] MEDS: FLECAINIDE ACETATE 50 MG TAB PO SCH (21:26)
[2024-10-08] MEDS: METOPROLOL TARTRATE 25 MG TAB PO SCH (21:29)
[2024-10-08] MEDS ORDERED: METOPROLOL TARTRATE 50 MG TAB PO SCH (22:00)
[2024-10-09 01:00] VITALS: BP 96/36; PULSE 52; RESP 16; TEMP 98.6; O2SAT 95
[2024-10-09 08:00] VITALS: PULSE 61; RESP 21; O2SAT 98
[2024-10-09 08:26] VITALS: BP 131/52; PULSE 61; RESP 21; TEMP 97.8; O2SAT 98
[2024-10-09] MEDS ORDERED: DICL75TA3 PO (09:32)
[2024-10-09] MEDS ORDERED: CEFD300C2 PO (09:32)
--- NOTE | 2024-10-09 09:37 | DVHINCON2 ---
Date of service: Oct 09, 2024 Referring Physician VIVIEN Saldivar Reason for Consultation Dyspnea, Hx RUL resection History of Present Illness 68-year-old woman history of cancer, COPD, chronic hypoxic respiratory failure hypertension who presented with shortness of breath. She noted cough and nausea for the last seven days. She states she recently had similar symptoms and received with steroid and antibiotic course. She continues to have right-sided flank pain radiating to the abdomen ass, dependence on supplemental oxygen ociated with sharp pain. It mostly occurs with deep inspiration. Pulmonary consultation is called due to COPD. Review of systems: 14 point review of systems is negative unless otherwise noted above. Past medical history: Cancer, COPD, hypertension Past surgical history: Right hip replacement Medications: Reviewed Allergies: No known drug allergies. Family history: No family history of premature CAD. No family history of lung disease Social history: Ex-smoker. Quit more than one year ago. Social alcohol use. No illicit drug use. Lives at home. Family History: Chronic obstructive pulmonary disease G8 FATHER Diabetes mellitus G8 MOTHER Hypertension G8 MOTHER G8 FATHER Osteoporosis G8 MOTHER Allergies: Coded Allergies: NO KNOWN ALLERGIES (Unverified , 07/22/24) Home Meds Active Scripts Diclofenac Sodium (Diclofenac Sodium Dr) 75 Mg Tab, 1 TAB PO BID for 10 Days, #20 TAB 1 Refill Prov:JIMENA SALDIVAR NP 10/09/24 Cefdinir (Cefdinir) 300 Mg Cap, 1 CAP PO BID for 7 Days, #14 CAP Prov:JIMENA SALDIVAR NP 10/09/24 Levofloxacin Hemihydrate (LEVOFLOXACIN) 500 Mg Tab, 500 MG PO DAILY for 7 Days, #7 MG Prov:LAZARUS VELÁSQUEZ MD 10/08/24 Prednisone (Prednisone) 10 Mg Tab, 10 MG PO DAILY for 5 Days, #5 MG Prov:LAZARUS VELÁSQUEZ MD 10/08/24 Levofloxacin Hemihydrate (LEVOFLOXACIN) 500 Mg Tab, 500 MG PO DAILY for 10 Days, #10 MG Prov:LAZARUS VELÁSQUEZ MD 10/01/24 Prednisone (Prednisone) 10 Mg Tab, 10 MG PO DAILY for 5 Days, #5 MG Prov:LAZARUS VELÁSQUEZ MD 10/01/24 Lidocaine (LIDODERM 5% TOPICAL PATCH) 1 Patch Ph, 1 PATCH TOP DAILY for 30 Days, #30 PATCH 1 Refill Prov:TONI SENIOR MD 08/09/24 Metoprolol Tartrate (LOPRESSOR TABLET) 50 Mg Tb, 50 MG PO BID for 30 Days, #60 TAB Prov:TONI SENIOR MD 08/09/24 Flecainide Acetate (TAMBOCOR TABLET) 50 Mg Tb, 50 MG PO Q12HR for 30 Days, #60 TAB Prov:TONI SENIOR MD 08/09/24 Docusate Sodium (Docusate Sodium) 100 Mg Cap, 100 MG PO BID for 30 Days, #60 CAP Prov:TONI SENIOR MD 08/09/24 Reported Medications Atorvastatin Calcium (Lipitor) 40 Mg Tab, 40 MG PO DAILY, TAB 08/23/23 Amlodipine Besylate (Amlodipine Besylate) 10 Mg Tab, 10 MG PO DAILY, TAB 08/23/23 Lisinopril & Hydrochlorothiazi (Lisinopril/Hydrochlorothi) 1 Tab Tab, 1 TAB PO DAILY, TAB 08/23/23 Current Medications Current Medications Medications (Trade) Dose Ordered Sig/Amador Route PRN Reason Start Time Stop Time Status Last Admin Morphine Sulfate 1 mg Q4HPRN PRN IV SEVERE PAIN (7-10 PAIN SCALE) 10/08/24 14:15 Acetaminophen/ Hydrocodone Bitart ([place] 5/325MG Tab) 1 tab Q6HPRN PRN PO MODERATE PAIN (4-6 PAIN SCALE) 10/08/24 14:15 10/08/24 14:30 Acetaminophen (Tylenol Tablet) 500 mg Q8HP PRN PO PAIN SCALE 1-3 OR TEMP>100.4 10/08/24 14:15 Ondansetron HCl (Zofran) 4 mg Q6HP PRN IV NAUSEA / VOMITING 10/08/24 14:15 Docusate Sodium (Colace Capsule) 100 mg BID PRN PO FOR CONSTIPATION 10/08/24 14:15 Albuterol (Ventolin Medneb) 2.5 mg Q4HPRN PRN NEB SHORTNESS OF BREATH 10/08/24 14:15 Ipratropium [place] (Atrovent Medneb) 0.5 mg Q4HPRN PRN NEB SHORTNESS OF BREATH 10/08/24 14:15 Ceftriaxone Sodium 50 ml @ 100 mls/hr DAILY@09 IV 11/7/24 14:15 10/08/24 14:30 Flecainide Acetate (Tambocor Tablet) 50 mg Q12HR PO 10/08/24 22:00 10/08/24 21:26 Metoprolol Tartrate (Lopressor Tablet) 50 mg BID PO 10/08/24 22:00 10/08/24 14:18 DC Metoprolol Tartrate (Lopressor Tablet) 25 mg BID PO 10/08/24 22:00 10/08/24 21:29 Vital Signs Vital Signs Date Time Temp Pulse Resp B/P (MAP) Pulse Ox O2 Delivery O2 Flow Rate FiO2 10/09/24 08:26 97.8 61 21 131/52 (78) 98 97.8 10/08/24 23:04 Nasal Cannula* 2 28 Physical Exam Gen.: Patient lying in bed in no apparent distress. On supplemental oxygen. Head: Normocephalic, atraumatic Eyes: EOMI/PERRLA. Ears: Normal hearing. Normal anatomy. Neck/trachea: Trachea midline, supple. Nose: Normal external anatomy. Mouth: Moist mucous membranes. Chest: Decreased air entry bilaterally. No wheezing or rhonchi. Cardio vascular: Positive S1, positive S2. Regular rate and rhythm. Abdomen: Positive bowel sounds in all 4 quadrants. Soft, non-tender, non- distended. : Deferred. Rectal: Deferred Skin: Warm, dry. Extremities: 2+ radial pulses bilaterally. No lower extremity edema. Neuro: Awake, alert, oriented x3. No gross motor or sensory deficits. Cranial nerves II through XII intact. Gait not assessed. Labs/Diagnostic Data Labs Test 10/08/24 15:06 10/08/24 10:25 10/08/24 10:00 Range/Units Erythrocyte Sedimentation Rate 27 H 0-20 mm/hr Sodium Level 140 136-145 mmol/L Potassium Level 3.3 L 3.5-5.1 mmol/L Chloride Level 103 98-107 mmol/L Carbon Dioxide Level 32 H 20-31 mmol/L Anion Gap 5 5-15 Blood Urea Nitrogen 10 9-23 mg/dL Creatinine 0.83 0.550-1.02 mg/dL Glomerular Filtration Rate Calc 77 >90 mL/min BUN/Creatinine Ratio 12.0 10.0-20.0 Serum Glucose 134 H 74-106 mg/dL Calcium Level 9.6 8.7-10.4 mg/dL Total Bilirubin 0.5 0.2-1.0 mg/dL Aspartate Amino Transferase (AST) 12 L 13-40 U/L Alanine Aminotransferase (ALT) 12 7-40 U/L Alkaline Phosphatase 89 46-116 U/L C-Reactive Protein High Sensitivity 1.78 H <1.0 mg/dL Total Protein 6.5 5.7-8.2 g/dL Albumin 3.7 3.2-4.8 g/dL White Blood Count 6.6 4.4-10.8 10^3/uL Red Blood Count 5.15 4.0-5.20 10^6/uL Hemoglobin 13.7 12.2-16.2 g/dL Hematocrit 40.9 36.0-46.0 % Mean Corpuscular Volume 79.5 L 80.0-100.0 fL Mean Corpuscular Hemoglobin 26.6 L 28.0-32.0 pg Mean Corpuscular Hemoglobin Concent 33.5 32.0-36.0 g/dL Red Cell Distribution Width 16.5 H 11.8-14.3 % Platelet Count 314 140-450 10^3/uL Mean Platelet Volume 7.7 6.9-10.8 fL Neutrophils (%) (Auto) 69.4 37.0-80.0 % Lymphocytes (%) (Auto) 20.6 10.0-50.0 % Monocytes (%) (Auto) 8.8 0.0-12.0 % Eosinophils (%) (Auto) 0.6 0.0-7.0 % Basophils (%) (Auto) 0.6 0.0-2.0 % Neutrophils # (Auto) 4.6 1.6-8.6 10 ^3/uL Lymphocytes # (Auto) 1.4 0.4-5.4 10 ^3/uL Monocytes # (Auto) 0.6 0-1.3 10 ^3/uL Eosinophils # (Auto) 0 0-0.8 10 ^3/uL Basophils # (Auto) 0 0-0.2 10 ^3/uL Nucleated Red Blood Cells 0.1 % Troponin I High Sensitivity < 3 L </=34 ng/L Urine Color Colorless Yellow Urine Clarity Clear Clear Urine pH 6.0 5.0-9.0 Urine Specific [place] 1.006 1.001-1.035 Urine Protein Negative Negative Urine Ketones Negative Negative Urine Blood Negative Negative /uL Urine Nitrite Negative Negative Urine Bilirubin Negative Negative Urine Urobilinogen Normal Negative mg/dL Urine Leukocyte Esterase 2+ Negative /uL Urine RBC 4 0 - 4 /hpf Urine WBC 5 0 - 5 /hpf Urine Squamous Epithelial Cells Few <5 /hpf Urine Bacteria Few H None Seen /hpf Urine Glucose Normal Normal mg/dL Assessment Impression: Acute on chronic hypoxic respiratory failure Hx Right upper lobe lung resection Obesity, BMI 34.1 Atelectasis Trace right pleural effusions Atelectasis Bilateral adrenal nodules Hypokalemia, supplemented. Plan: CXR report reviewed. CT chest report reviewed. NO acute opacities. Trace right pleural effusions. Atelectasis. Bilateral adrenal nodules. Supplemental o2 PRN Keep o2 saturation above 90% On 2 lpm via NC Incentive Spirometry for atelectasis COPD, Bronchodilators PRN ABX for UTI Plan for outpatient sleep study for evaluation for MAYNOR. Diet and lifestyle modifications for weight reduction given obesity. DVT Prophylaxis Outpatient F/u in Pulmonary Clinic within 1-2 weeks Prognosis: Poor given multiple comorbidities. Rest of plan per hospitalist and other consultants. Thank you VIVIEN Saldivar for allowing me to participate in this patient's care. Further recommendations will depend on patient's clinical course. Please do not hesitate to contact me if you have any questions or concerns. This medical document was created using an electronic medical record system with [employer] dictation system. Although this document has been carefully reviewed, there may still be some phonetic and typographical errors. These area s are purely typographical due to imperfections of the software programs, and do not reflect any compromise in the patient's medical care. Plan discussed with: Patient, Other (BI Anton, VIVIEN Saldivar) YAAKOV MELO MD Oct 09, 2024 09:36
[2024-10-09] MEDS: KETOROLAC TROMETH 30 MG/ML 1ML VIAL IV ONE (11:06)
[2024-10-09] MEDS: DOCUSATE SOD 100 MG CAP PO PRN (11:15)
[2024-10-09 12:52] VITALS: BP 106/42; PULSE 58; RESP 20; TEMP 98; O2SAT 97
--- NOTE | 2024-10-09 13:28 | DVHDS2 ---
Discharge Summary Date of Admission Oct 08, 2024 at 14:04 Date of Discharge: Oct 09, 2024 Admitting Diagnosis Abdominal pain Labs/Diagnostic Data: Laboratory Results Test 10/08/24 15:06 10/08/24 10:25 10/08/24 10:00 Erythrocyte Sedimentation Rate 27 mm/hr (0-20) Sodium Level 140 mmol/L (136-145) Potassium Level 3.3 mmol/L (3.5-5.1) Chloride Level 103 mmol/L (98-107) Carbon Dioxide Level 32 mmol/L (20-31) Anion Gap 5 (5-15) Blood Urea Nitrogen 10 mg/dL (9-23) Creatinine 0.83 mg/dL (0.550-1.02) Glomerular Filtration Rate Calc 77 mL/min (>90) BUN/Creatinine Ratio 12.0 (10.0-20.0) Serum Glucose 134 mg/dL (74-106) Calcium Level 9.6 mg/dL (8.7-10.4) Total Bilirubin 0.5 mg/dL (0.2-1.0) Aspartate Amino Transferase (AST) 12 U/L (13-40) Alanine Aminotransferase (ALT) 12 U/L (7-40) Alkaline Phosphatase 89 U/L (46-116) C-Reactive Protein High Sensitivity 1.78 mg/dL (<1.0) Total Protein 6.5 g/dL (5.7-8.2) Albumin 3.7 g/dL (3.2-4.8) White Blood Count 6.6 10^3/uL (4.4-10.8) Red Blood Count 5.15 10^6/uL (4.0-5.20) Hemoglobin 13.7 g/dL (12.2-16.2) Hematocrit 40.9 % (36.0-46.0) Mean Corpuscular Volume 79.5 fL (80.0-100.0) Mean Corpuscular Hemoglobin 26.6 pg (28.0-32.0) Mean Corpuscular Hemoglobin Concent 33.5 g/dL (32.0-36.0) Red Cell Distribution Width 16.5 % (11.8-14.3) Platelet Count 314 10^3/uL (140-450) Mean Platelet Volume 7.7 fL (6.9-10.8) Neutrophils (%) (Auto) 69.4 % (37.0-80.0) Lymphocytes (%) (Auto) 20.6 % (10.0-50.0) Monocytes (%) (Auto) 8.8 % (0.0-12.0) Eosinophils (%) (Auto) 0.6 % (0.0-7.0) Basophils (%) (Auto) 0.6 % (0.0-2.0) Neutrophils # (Auto) 4.6 10 ^3/uL (1.6-8.6) Lymphocytes # (Auto) 1.4 10 ^3/uL (0.4-5.4) Monocytes # (Auto) 0.6 10 ^3/uL (0-1.3) Eosinophils # (Auto) 0 10 ^3/uL (0-0.8) Basophils # (Auto) 0 10 ^3/uL (0-0.2) Nucleated Red Blood Cells 0.1 % Troponin I High Sensitivity < 3 ng/L (</=34) Urine Color Colorless (Yellow) Urine Clarity Clear (Clear) Urine pH 6.0 (5.0-9.0) Urine Specific [place] 1.006 (1.001-1.035) Urine Protein Negative (Negative) Urine Ketones Negative (Negative) Urine Blood Negative /uL (Negative) Urine Nitrite Negative (Negative) Urine Bilirubin Negative (Negative) Urine Urobilinogen Normal mg/dL (Negative) Urine Leukocyte Esterase 2+ /uL (Negative) Urine RBC 4 /hpf (0 - 4) Urine WBC 5 /hpf (0 - 5) Urine Squamous Epithelial Cells Few /hpf (<5) Urine Bacteria Few /hpf (None Seen) Urine Glucose Normal mg/dL (Normal) Other Laboratory Tests 10/08/24 15:06 10/08/24 10:25 Brief Hx & Hospital Course: History of Present Illness The patient was a 68-year-old female presenting to the emergency room with right flank and right upper quadrant pain. The patient states that she was seen in our emergency room on 10/01/2024 with similar symptoms, at that time diagnosed with pneumonitis. Patient was given antibiotic course which she completed with no resolution of her symptoms. Patient denies having any fevers, chills, cough, nausea/vomiting, diarrhea. Assessment of the patient reveals severe tenderness with right upper quadrant palpation. Significant history of the patient includes lung cancer with recent lobectomy, hypertension, atrial fibrillation, and dyslipidemia. The patient also has chronic hypoxic respiratory failure on 2-3 L of oxygen at home. Course of hospitalization: Patient had CT scan of the chest, abdomen, pelvis. No acute pathology was found. Patient was found to have pain more so in her right rib area with movement. Patient was given a trial of Toradol which did relieve her pain. Long discussion was made with the patient regarding CT scan findings, lab work, which included UTI, small pleural effusions. Pulmonary consultation was also obtained regarding the patient's acute on chronic hypoxic failure, lung cancer. Patient was agreeable to be discharged home with a trial of diclofenac for pain management, as well as cefdinir 300 mg p.o. b.i.d. for treatment of UTI. She was instructed to follow up with her PCP in 1-2 weeks, as well as pulmonology in 1-2 weeks. All questions answered. Physical examination General: Alert and Oriented x3. No acute distress. Well-nourished. Obese Eyes: EOMI. Anicteric. HENT: Moist mucous membranes. Lungs: Clear to auscultation bilaterally. No accessory muscle use. Cardiovascular: Regular rate and rhythm. No murmur. No JVD. Abdomen: Soft, non-tender and non-distended. No palpable masses. Extremities: No edema. Non-tender. Skin: No rashes or lesions. Warm. Neurologic: No focal neurological deficits. CN II-XII grossly intact, but not individually tested. Psychiatric: Cooperative. Appropriate mood and affect. Total time spent with patient discussing and formulating plan of care: 35 minutes. This medical document was created using an electronic medical record system with [email or web address] dictation system. Although this document has been carefully reviewed, there may still be some phonetic and typographical errors. These areas are purely typographical due to imperfections of the software programs, and do not reflect any compromise in the patient's medical care. Consults/Reason for consult Pulmonary: Right chest/flank pain Condition at Discharge: Guarded Final Diagnosis/Problems List Acute on chronic hypoxic respiratory failure Secondary Diagnosis: -abdominal pain musculoskeletal in nature -history of lung CA with recent right upper lobe lobectomy -atrial fibrillation -obesity -acute on chronic hypoxic respiratory failure -dyslipidemia -UTI -renal calculi Discharge Disposition: Home Discharge Instruct/Medications Diet: Cardiac 2g Na,low cholest Activity: No Restrictions, As Tolerated Follow Up/Referral: Follow up with Dr. Hamilton, pulmonology in 1-2 weeks Follow up with PCP, Dr. Glen Pike in 1-2 weeks Medications: Diclofenac 75 mg p.o. twice a day for seven days Cefdinir 300 mg p.o. b.i.d. x7 days 36 Discharge Statement: "Patient was advised to return to the ER or call 911 if any headaches, dizziness, shortness of breath, chest pain, abdominal pain, bleeding, fevers, or worsening of medical condition. Patient was counseled about treatment plan, medications, possible side effects, patientverbalized understanding. All questions were answered to the best of my ability. This discharge took greater then 30 minutes in planning, reviewing documentation, counseling the patient, and discussing with other team members." ASSESSMENT ASSESSMENT Assessment Acute on chronic hypoxic respiratory failure Date of Service: Oct 09, 2024 Billing Provider: JIMENA RICHARD NP Common Visit Codes: 92469-NPU/OBS DISCH DAY >30min JIMENA RICHARD NP Oct 09, 2024 13:28
[2024-10-09 14:18] VITALS: BP 106/42; PULSE 58; RESP 20; TEMP 36.7; O2SAT 97
--- NOTE | 2024-10-12 14:56 | ECG ---
[facility] Test Date: 2024-10-08 Test Time: 09:49:16 Pat Name: PS GARLAND Department: ER Room: [facility] B Gender: F Orthopaedic Surgeon: SOFIYA : 1955 Requested By: LAZARUS VELÁSQUEZ Order Number: [id number] Reading MD: Measurements Intervals [place] Rate: 68 P: 70 NC: 206 QRS: 92 QRSD: 93 T: 54 QT: 380 QTc: 405 Interpretive Statements Sinus rhythm Probable right ventricular hypertrophy Please click the below link to view image of tracing.
== END 2024-10-09 15:10 | disposition home or self-care (01) | DRG 189 ==
LOC: ER 09:18 → TELE 14:04 → WEST WING 16:26
PROVIDERS: ADMIT Nurse Practitioner Acute Care; ATTEND Nurse Practitioner Acute Care
DX: J96.21 Acute and chronic respiratory failure with hypoxia (principal); N39.0 Urinary tract infection, site not specified; J98.11 Atelectasis; I48.91 Unspecified atrial fibrillation; E78.5 Hyperlipidemia, unspecified; J44.9 Chronic obstructive pulmonary disease, unspecified; E66.9 Obesity, unspecified; E87.6 Hypokalemia; E27.8 Other specified disorders of adrenal gland; N20.0 Calculus of kidney; J98.4 Other disorders of lung; Z96.641 Presence of right artificial hip joint; I10 Essential (primary) hypertension; Z87.891 Personal history of nicotine dependence; Z68.34 Body mass index [BMI] 34.0-34.9, adult; Z85.118 Personal history of other malignant neoplasm of bronchus and lung; Z99.81 Dependence on supplemental oxygen; Z82.5 Family history of asthma and other chronic lower respiratory diseases; Z83.3 Family history of diabetes mellitus; Z82.49 Family history of ischemic heart disease and other diseases of the circulatory system; Z82.62 Family history of osteoporosis; Z79.899 Other long term (current) drug therapy
CPT/HCPCS: 36415; 71045; 71250; 74176; 80048; 80053; 81001; 84484; 85025; 85652; 86141; 93005; 96365; 99291; G0378; J1885